=== PATIENT | female | born 1940 | race Caucasian/White ===

== ENCOUNTER → 2018-01-09 | Outpatient (CLI) | payer MEDICARE ==
--- NOTE | 2018-01-09 16:42 | Diagnostic Imaging Report ---
EXAM: DXA BONE DENSITY INDICATIONS: OSTEOPOROSIS COMPARISON: None. FINDINGS: Proximal left femur total bone mineral density (BMD) (g/cm2):0.729 Femur T-score (standard deviation relative to young adult mean BMD): -1.7 Femur Z-score (standard deviation relative to age-matched control group):0.2 Proximal left femur neck bone mineral density (BMD) (g/cm2):0.646 Femur T-score (standard deviation relative to young adult mean BMD): -1.8 Femur Z-score (standard deviation relative to age-matched control group):0.4 Lumbar bone mineral density (BMD) (g/cm2):0.902 Lumbar T-score (standard deviation relative to young adult mean BMD): -1.3 Lumbar Z-score (standard deviation relative to age-matched control group):1.2 Change since prior exam (%): Femur:Not applicable. Spine:Not applicable. Change since oldest prior exam (%): Femur:Not applicable. Spine:Not applicable. CONCLUSION: 1. Bone mineral density in the left femur is classified as osteopenia. Fracture risk is increased. 2. Bone mineral density in the spine is classified as osteopenia. Fracture risk is increased. World Health Organization Classification: *The Z-score is provided for informational purposes. The T-score is preferable for clinical decisions. When comparing exams, a change of >4% is considered statistically significant. SUGGESTED RECOMMENDATIONS: Normal \T\ Osteopenia:Consideration should be given to use of calcium supplementation, daily multiple vitamins and adequate exercise, as preventive measures against osteoporosis, if clinically indicated. Osteoporosis \T\ Severe Osteoporosis:In addition to the above, consideration should be given to medical therapy against osteoporosis, if clinically indicated. Brandon Sanchez M.D. Dictated by: Brandon Sanchez M.D. on 01/09/2018 at 16:43 Electronically approved by: Brandon Sanchez M.D. on 01/09/2018 at 16:43
== END ==
LOC: RAD 14:29
PROVIDERS: ATTEND Surgery
DX: Z12.31 Encounter for screening mammogram for malignant neoplasm of breast (principal); M81.0 Age-related osteoporosis without current pathological fracture
CPT/HCPCS: 77080

== ENCOUNTER → 2019-12-09 | Outpatient (CLI) | payer MEDICARE ==
--- NOTE | 2019-12-09 12:30 | Diagnostic Imaging Report ---
PROCEDURE: Ultrasound-guided biopsy Procedural Personnel Attending physician(s): Nadira Verma MD Fellow physician(s): None Resident physician(s): None Advanced practice provider(s): None Pre-procedure diagnosis: Left axillary mass Post-procedure diagnosis: Same Indication: Histopathologic diagnosis Previous biopsy of same target (QCDR): No Additional clinical history: None Complications: No immediate complications. IMPRESSION: Ultrasound-guided biopsy of left axillary driss mass. Plan: Specimen(s) sent for evaluation. PROCEDURE SUMMARY: - Percutaneous US-guided left axillary driss mass core and FNA biopsy - Additional procedure(s): None PROCEDURE DETAILS: Pre-procedure Reference imaging for biopsy target: None Consent: Informed consent for the procedure including risks, benefits and alternatives was obtained and time-out was performed prior to the procedure. Preparation: The site was prepared and draped using maximal sterile barrier technique including cutaneous antisepsis. Anesthesia/sedation Level of anesthesia/sedation: No sedation Anesthesia/sedation administered by: Independent trained observer under attending supervision with continuous monitoring of the patient?s level of consciousness and physiologic status Total intra-service sedation time (minutes): N/A Imaging prior to biopsy The patient was positioned supine. Initial ultrasound was performed. Biopsy target: - Maximal diameter (cm): 3 - Location: Left axilla Other findings: None Biopsy Local anesthesia was administered. Under US guidance, the biopsy needle was advanced to the target and biopsy was performed. Coaxial needle: 17 gauge Core needle biopsy device: [employer] Core needle size: 18 gauge Number of core specimens: 2 Fine needle aspiration device: Chiba Fine needle size: 22 gauge Number of FNA specimens: 2 On-site biopsy touch preparation: Yes Additional sampling recommendations: None Preliminary assessment of sample adequacy: Adequate Needle removal The biopsy needle was removed and a sterile dressing was applied. Tract embolization: None Imaging following biopsy Immediate post-biopsy ultrasound was performed. Post-biopsy imaging findings: No hematoma Additional Details Additional description of procedure: None Equipment details: None Specimens removed: Biopsy samples as detailed above Estimated blood loss (mL): Less than 10 Standardized report: [id number] Attestation Signer name: Nadira Verma MD I attest that I was present for the entire procedure. I reviewed the stored images and agree with the report as written. Signed by: Nadira Verma MD on 12/09/2019 12:27 PM
== END ==
LOC: US 10:22
PROVIDERS: ATTEND Internal Medicine Medical Oncology
DX: R59.0 Localized enlarged lymph nodes (principal); I87.2 Venous insufficiency (chronic) (peripheral); R59.1 Generalized enlarged lymph nodes; Z86.718 Personal history of other venous thrombosis and embolism
CPT/HCPCS: 10005; 38505; 88172; 88173; 88304; 88305; 88342

== ENCOUNTER → 2020-01-12 | Outpatient (CLI) | payer MEDICARE ==
--- NOTE | 2020-01-14 20:02 | Diagnostic Imaging Report ---
#[id number] - [id number] #BILATERAL DIGITAL DIAGNOSTIC MAMMOGRAM WITH CAD: 01/12/2020 Comparison is made to exam dated: 04/14/2019 mammogram - [facility]. The tissue of both breasts is predominantly fatty. Current study was also evaluated with a Computer Aided Detection (CAD) system. There is a 3.7 cm oval high density mass with a circumscribed margin in the left breast at 1 o'clock posterior depth. No other significant masses, calcifications, or other findings are seen in either breast. IMPRESSION: INCOMPLETE: NEEDS ADDITIONAL IMAGING EVALUATION The 3.7 cm oval high density mass in the left breast is indeterminate. An ultrasound is recommended. RENAE corbin/jigar:01/14/2020 15:26:55 Model Technician: Lalitha POSADAS(R)(M), [facility] Mammogram BI-RADS: 0 Indeterminate
--- NOTE | 2020-01-14 20:02 | Diagnostic Imaging Report ---
#[id number] - USBRELIMLT ULTRASOUND OF THE LEFT BREAST : 01/12/2020 Comparison is made to exams dated: 01/12/2020 mammogram - [facility] and 04/14/2019 mammogram - [facility] [place]. Color flow and real-time ultrasound were performed on the left breast. Gomez scale images of the real-time examination were reviewed. There is a are two wider than tall oval masses with a circumscribed margins in the left axillary tail measuring up to 3.5cm and 1.9cm. IMPRESSION: SUSPICIOUS OF MALIGNANCY - FOLLOW-UP RECOMMENDED The masses in the left axillary tail are suspicious. A biopsy is recommended. A phone call was made to the physician's office. The patient has been or will be contacted. RENAE DILLON M.D. kw/:01/14/2020 15:29:32 Stationary Engineer: Prudence Dominguez RDCO, [facility] letter sent: Biopsy Required Ultrasound BI-RADS: 4 Suspicious abnormality
== END ==
LOC: MAMMO 01-11 10:36
PROVIDERS: ATTEND Surgery
DX: N63.32 Unspecified lump in axillary tail of the left breast (principal); R59.0 Localized enlarged lymph nodes
CPT/HCPCS: 77066

== ENCOUNTER → 2020-01-24 | Outpatient (CLI) | payer MEDICARE ==
--- NOTE | 2020-01-26 08:32 | Diagnostic Imaging Report ---
#[id number] - MGDXLT #UNILATERAL LEFT DIGITAL DIAGNOSTIC MAMMOGRAM POST-NEEDLE BIOPSY: 01/24/2020 Comparison is made to exams dated: 01/24/2020 ultrasound biopsy and 01/12/2020 mammogram - [facility]. The tissue of the left breast is predominantly fatty. Mammographic images confirm biopsy clip in the left breast at 1 o'clock posterior depth associated with the biopsied axillary tail mass. IMPRESSION: POST PROCEDURE MAMMOGRAM FOR MARKER PLACEMENT Successful marker clip placement at axillary tail mass following ultrasound guided biopsy. Follow-up with ACR/ACS guidelines. RENAE DILLON M.D. kw/:01/24/2020 16:28:17 Pewter Caster: Lalitha POSADAS(R)(M), [facility] Mammogram BI-RADS: Post-procedure mammogram for marker placement
--- NOTE | 2020-01-26 08:32 | Diagnostic Imaging Report ---
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 PATIENT CONSENT: According to [facility] requirements, a time out was performed, correct site was localized and the patient was consented. PROCEDURE DESCRIPTION: Written informed consent for biopsy and marker placement was obtained after full discussion with patient of procedure, risks, benefits and alternatives. A multimedia developer out was taken to confirm patient and procedure. Correlation is made to exams dated: 01/12/2020 mammogram, 01/12/2020 ultrasound - [facility] and 04/14/2019 mammogram - [facility]. An ultrasound guided biopsy using real-time ultrasound was performed for the 2 cm abnormality located in the left axillary tail. The skin was prepped in the usual manner. A biopsy needle was placed adjacent to the abnormality under ultrasound guidance. Once the needle was documented to be in the correct location, 3 specimens were obtained using a 14 gauge automated biopsy device. A marker clip was placed at the biopsy site. The specimen was sent to the laboratory for pathological analysis. IMPRESSION: ULTRASOUND GUIDED BIOPSY Ultrasound guided biopsy of the 2 cm abnormality in the left axillary tail was successful. Follow-up with ACR/ACS guidelines. RENAE DILLON M.D. kw/:01/24/2020 16:26:52 Certified Ophthalmic Surgical Assistant: SUE SIMONS [facility], [facility] [id number]
== END ==
LOC: US 12:03
PROVIDERS: ATTEND Surgery
DX: N63.32 Unspecified lump in axillary tail of the left breast (principal); C50.612 Malignant neoplasm of axillary tail of left female breast; N64.1 Fat necrosis of breast
CPT/HCPCS: 19083; 77065; 88305; A4648

== ENCOUNTER 2020-05-01 20:57 | Emergency (ER) | payer MEDICARE, OTHER ==
[~2020-05-01] VITALS: Ht 165.1 cm; Wt 49.9 kg
[2020-05-01] MEDS ORDERED: ACETAMINOPHEN 325 MG TAB PO ONE (21:30)
[2020-05-01 21:43] LABS: EOSINOPHILS % 1.5 % (0.0-6.0); HEMATOCRIT 32.8 % (34.2-44.1); HEMOGLOBIN 10.8 g/dL (12.0-16.0); LYMPHOCYTES # (AUTO) 0.1 (1.0-3.2); LYMPHOCYTES % 20.9 % (18.0-39.1); MEAN CORPUSCULAR HEMOGLOBIN 33.4 pg (28-32); MEAN CORPUSCULAR HGB CONC 32.9 g/dL (31-35); MEAN CORPUSCULAR VOLUME 101.5 fL (81-99); MONOCYTES # (AUTO) 0.3 (0.2-0.8); MONOCYTES % 49.3 % (4.4-11.3); NEUTROPHILS # (AUTO) 0.2 (2.1-6.9); NEUTROPHILS % 25.3 % (38.7-80.0); PLATELET COUNT 99 x10e3/uL (140-360); RED BLOOD COUNT 3.23 x10e6/uL (3.6-5.1); RED CELL DISTRIBUTION WIDTH 12.7 % (11.7-14.4)
[2020-05-01] MEDS: CEFEPIME 1GM/NS 0.9% 50 ML 50 ML IV SCH ×2 (21:52→22:54)
[2020-05-01] MEDS ORDERED: AZITHROMYCIN 500MG/NS 250 ML 250 ML IV ONE (22:00)
[2020-05-01 22:02] LABS: ALBUMIN 3.6 g/dL (3.5-5.0); ALBUMIN/GLOBULIN RATIO 1.2 (0.8-2.0); ANION GAP 15.6 mmol/L (8-16); CALCIUM 9.3 mg/dL (8.4-10.2); CREATININE, SERUM 1.06 mg/dL (0.57-1.11); POTASSIUM 4.6 mmol/L (3.5-5.1)
--- NOTE | 2020-05-01 22:06 | Emergency Department Note ---
History of Present Illnes History of Present Illness Chief Complaint: General Medicine Complaints History of Present Illness This is a 79 year old female arrived to the ED with complaints generalized weakness and malaise for several days. Actively undergoing chemotherapy.. Chief Complaint Comment 79 Y/O FEMALE PT AAOX3 PRESENTS TO THE ER C/O GENERALIZED WEAKNESS SINCE YESTERDAY; PT IS CURRENTLY RECEIVING CHEMOTHERAPY FOR STAGE 4 BREAST CA; PT FEBRILE ON ARRIVAL, TEMP 101.9; PT DENIES HAVING RECENT FEVER; PT DENIES CP OR SOB; RESP EVEN/UNLABORED; PT PALE IN COLOR; PT ATTACHED TO CARDIAC/BS MONITOR; ER MD AT BEDSIDE FOR INITIAL EVAL. Historian: Patient, [employer] Banker/EMS Arrival Mode: [place] Spiritual Advisor Required: No Onset (how long ago): day(s) Radiation: Reports non-radiation Severity: mild Onset quality: gradual Progression: worsening Chronicity: new Past Medical/Family History Physician Review I have reviewed the patient's past medical and family history. Any updates have been documented here. Past Medical History Recent Fever: Yes Clinical Suspicion of Infectio: Yes New/Unexplained Change in Ment: No Past Medical History: A-Fib, Cancer Other Medical History: STAGE 4 BREAST CA THYROID CA MENINGITIS ENCEPHALITIS PHLEBITIS ARTHRITIS HEART ARRYTHMIA Past Surgical History: Hysterectomy, Pacer/AICD Other Surgery: HEART CATH X2 BREAST BIOPSIES Social History Physically hurt or threatened: No Review of Systems Review of Systems Constitutional: Reports as per HPI, Reports fever, Reports malaise, Reports weakness EENTM: Reports no symptoms Cardiovascular: Reports no symptoms Respiratory: Reports no symptoms Gastrointestinal: Reports no symptoms Genitourinary: Reports no symptoms Musculoskeletal: Reports no symptoms Integumentary: Reports no symptoms Neurological: Reports no symptoms Psychological: Reports no symptoms Endocrine: Reports no symptoms Hematological/Lymphatic: Reports no symptoms Physical Exam Related Data Allergies: Coded Allergies: codeine (Verified Allergy, Intermediate, 08/15/09) acetazolamide (Verified Adverse Reaction, Mild, 08/15/09) methazolamide (Verified Adverse Reaction, Mild, 08/15/09) Triage Vital Signs Vital Signs Date Time Temp Pulse Resp B/P (MAP) Pulse Ox O2 Delivery O2 Flow Rate FiO2 05/01/20 20:59 101.9 60 16 126/44 96 Room Air Vital signs reviewed: Yes Physical Exam CONSTITUTIONAL Constitutional: Present cachectic, Present ill appearing HENT HENT: Present normocephalic, Present atraumatic, Present oropharynx clear/moist, Present nose normal HENT L/R: Present left ext ear normal, Present right ext ear normal EYES Eyes: Reports PERRL, Reports conjunctivae normal NECK Neck: Present ROM normal PULMONARY Pulmonary: Present effort normal, Present breath sounds normal CARDIOVASCULAR Cardiovascular: Present regular rhythm, Present heart sounds normal, Present capillary refill normal, Present normal rate GASTROINTESTINAL Abdominal: Present soft, Present nontender, Present bowel sounds normal GENITOURINARY Genitourinary: Present exam deferred SKIN Skin: Present warm, Present dry MUSCULOSKELETAL Musculoskeletal: Present ROM normal NEUROLOGICAL Neurological: Present alert, Present oriented x 3, Present no gross motor or sensory deficits PSYCHOLOGICAL Psychological: Present mood/affect normal, Present judgement normal Results Laboratory Result Diagram: 05/01/20 2134 Laboratory Laboratory Tests Test 05/01/20 21:34 White Blood Count 0.67 x10e3/uL (4.8-10.8) Red Blood Count 3.23 x10e6/uL (3.6-5.1) Hemoglobin 10.8 g/dL (12.0-16.0) Hematocrit 32.8 % (34.2-44.1) Mean Corpuscular Volume 101.5 fL (81-99) Mean Corpuscular Hemoglobin 33.4 pg (28-32) Mean Corpuscular Hemoglobin Concent 32.9 g/dL (31-35) Red Cell Distribution Width 12.7 % (11.7-14.4) Platelet Count 99 x10e3/uL (140-360) Neutrophils (%) (Auto) 25.3 % (38.7-80.0) Lymphocytes (%) (Auto) 20.9 % (18.0-39.1) Monocytes (%) (Auto) 49.3 % (4.4-11.3) Eosinophils (%) (Auto) 1.5 % (0.0-6.0) Basophils (%) (Auto) 3.0 % (0.0-1.0) Neutrophils # (Auto) 0.2 (2.1-6.9) Lymphocytes # (Auto) 0.1 (1.0-3.2) Monocytes # (Auto) 0.3 (0.2-0.8) Eosinophils # (Auto) 0.0 (0.0-0.4) Basophils # (Auto) 0.0 (0.0-0.1) Absolute Immature Granulocyte (auto 0 x10e3/uL (0-0.1) Lactic Acid Level 2.3 mmol/L (0.5-2.0) Lab results reviewed: Yes Imaging Imaging results reviewed: Yes Assessment & Plan Medical Decision Making MDM 79-year-old female rotated generalized malaise, weakness. Patient noted to be febrile, marked neutropenia noted. Concerns are neutropenic fever and severe sepsis. Patient transferred to [facility] for continuity of high level of care. Assessment & Plan Final Impression: (1) Neutropenic fever (2) Severe sepsis Depart Disposition: [facility]ANS TO OTHER [facility] Last Vital Signs Date Time Temp Pulse Resp B/P (MAP) Pulse Ox O2 Delivery O2 Flow Rate FiO2 05/01/20 20:59 101.9 60 16 126/44 96 Room Air Medications in the ED Cefepime HCl 50 ml @ 100 mls/hr Q24H IV ; Start 05/01/20 at 21:30; Stop 05/08/20 at 21:29 Azithromycin 250 ml @ 250 mls/hr NOW ONCE IV ; Start 05/01/20 at 22:00; Stop 05/01/20 at 22:59 Acetaminophen 650 mg ONCE ONCE PO Last administered on 05/01/20at 21:53; Admin Dose 650 MG; Start 05/01/20 at 21:30; Stop 05/01/20 at 21:31 NAGI LAWRENCE DO May 01, 2020 22:07
[2020-05-01 22:07] LABS: BILIRUBIN,URINE NEGATIVE (NEGATIVE); CLARITY,URINE CLEAR (CLEAR); COLOR,URINE YELLOW (YELLOW); KETONES,URINE NEGATIVE (NEGATIVE); LEUKOCYTE ESTERASE ,URINE NEGATIVE (NEGATIVE); NITRITE,URINE NEGATIVE (NEGATIVE); PROTEIN,URINE DIPSTICK NEGATIVE (NEGATIVE); URINE UROBILINOGEN 0.2 mg/dL (0.2 - 1)
[2020-05-01 22:09] LABS: AMORPHOUS SEDIMENT,URINE FEW (FEW); BACTERIA,URINE MODERATE /HPF; EPITHELIAL CELLS,URINE RARE /LPF; MUCUS,URINE FEW (RARE); RBC,URINE 0-5 /HPF (0-5)
[2020-05-01 22:15] LABS: CREATINE KINASE MB 2.9 ng/mL (0-5.0)
[2020-05-01 22:19] LABS: EOSINOPHILS % (MANUAL) 2 % (0-7); LYMPHOCYTES % (MANUAL) 16 % (19-48); METAMYELOCYTES % (MANUAL) 2 % (0-0); MONOCYTES % (MANUAL) 26 % (3.4-9.0); NEUTROPHILS % (MANUAL) 34 % (40-74); PLATELET ESTIMATE SLIGHTLY DECREASED; PLATELET MORPHOLOGY COMMENT NORMAL; RBC MORPHOLOGY COMMENT NORMAL
--- NOTE | 2020-05-01 22:39 | Diagnostic Imaging Report ---
Examination: CT BRAIN WO CONTRAST History:Fever. Weakness. Comparison studies:None Technique: Axial images were obtained from the skull base to the vertex. Coronal and sagittal images reconstructed from the axial data. Dose modulation, iterative reconstruction, and/or weight based adjustment of the mA/kV was utilized to reduce the radiation dose to as low as reasonably achievable. Intravenous contrast: None Findings: Scalp: No abnormalities. Bones: No fractures, blastic or lytic lesions. Brain sulci: Generalized volume loss for age. Ventricles: A occipital shunt catheter traverses the third ventricle and distal tip in the frontal horn of the right lateral ventricle. Ventriculomegaly. No hydrocephalus. Extra-axial space: No abnormalities. Parenchyma: There are patchy areas of hypoattenuation in the periventricular and subcortical white matter, nonspecific No masses, hemorrhage, or acute or chronic cortical based vascular insults.. Sellar/suprasellar region: No abnormalities. Craniocervical junction: Patent foramen magnum. No Chiari one malformation. Incidental findings: None. Impression: No acute intracranial abnormalities. Left occipital ventricular shunt catheter with distal tip in the right lateral ventricle. Ventriculomegaly. Chronic microvascular ischemic change and generalized volume loss. Signed by: Dr. Shabana Meraz M.D. on 05/01/2020 10:36 PM
--- NOTE | 2020-05-01 22:43 | Diagnostic Imaging Report ---
EXAMINATION: CHEST SINGLE (PORTABLE) INDICATION: ^Y ^FEVER COMPARISON: None FINDINGS: AP view TUBES and LINES: Left chest port in place with tip projecting over mid SVC. Dual-lead left chest wall cardiac device in place with tips projecting over right atrium and right ventricle. Partially seen left-sided ventriculoperitoneal shunt. LUNGS: Lungs are well inflated. Left lower lung field hazy airspace opacities. PLEURA: No pleural effusion or pneumothorax. HEART AND MEDIASTINUM: The cardiomediastinal silhouette is prominent. Mild central vascular congestion. BONES AND SOFT TISSUES: No acute osseous lesion. Soft tissues are unremarkable. UPPER ABDOMEN: No free air under the diaphragm. Surgical clips projecting over right superior mediastinum and right upper chest wall. IMPRESSION: Left lower lung field hazy opacities, could represent subsegmental atelectasis or developing pneumonia in the appropriate clinical context. Signed by: Dr. Lee Lakhani MD on 05/01/2020 10:40 PM
--- NOTE | 2020-05-01 23:17 | NUR ---
REPORT CALLED AT THIS TIME TO OREN ELIZABETH, AT [facility] ROOM 1043.
--- OUTSIDE RECORDS SUMMARY | 2020-05-01 23:18 | XMS REPORT | Clinical Summary ---
Author Author [facility] Organization [facility] Address Unknown Phone Unavailable Care Team Providers Care Front End Ui Developer Name Role Phone Keenan Hernández MD PCP Allergies Comments Active Allergy Reactions Severity Noted Date Acetazolamide 02/25/2017 Codeine 02/25/2017 Methazolamide 02/25/2017 Medications End Date Status Medication Sig Dispensed Refills Start Date Active warfarin (COUMADIN) 1 MG 0 tablet 7 Active promethazine (PHENERGAN) 0 25 MG tablet 7 Active HYDROcodone-acetaminophen 0 (NORCO) 10-325 mg per 7 tablet Active flecainide (TAMBOCOR) 50 0 MG tablet 7 Active diazePAM (VALIUM) 5 MG 0 tablet 7 Active ALPRAZolam (XANAX) 2 MG 0 tablet 7 Active thyroid, pork, 65 mg Take by 0 tablet mouth. Active metoprolol succinate XL TAKE ONE (1) 0 (TOPROL-XL) 25 mg 24 hr TABLET(S) BY 8 tablet MOUTH ONCE A DAY. Active tiZANidine (ZANAFLEX) 2 TAKE ONE (1) 5 MG tablet TABLET BY 8 MOUTH AT BEDTIME. Active amIODarone (PACERONE) 200 TAKE ONE (1) 3 09/22 7/201 MG tablet TABLET(S) BY 9 MOUTH ONCE A DAY. Active spironolactone TAKE ONE (1) 3 (ALDACTONE) 25 MG tablet TABLET(S) BY 8 MOUTH ONCE A DAY. Active pantoprazole (PROTONIX) TAKE ONE (1) 90 tablet 3 0 40 MG EC tablet TABLET(S) BY 0 MOUTH DAILY. 11/25/2019 Discontinued pantoprazole (PROTONIX) Take 1 tablet 90 tablet 4 40 MG EC tablet (40 mg total) 9 by mouth daily. 12/07/2019 Discontinued (Reorder) pantoprazole (PROTONIX) TAKE ONE (1) 90 tablet 3 0 40 MG EC tablet TABLET(S) BY 0 MOUTH DAILY. Active Problems Problem Noted Date Irritable bowel syndrome with diarrhea 02/25/2017 Hiatal hernia GERD (gastroesophageal reflux disease) Gastritis Encounters Care Team Description Date Type Specialty Magen To MD 12/07/2019 Refill Gastroenterology Magen To MD 11/25/2019 Refill Gastroenterology after 05/01/2019 Family History Relation Name Status Comments Father Mother Social History Date Tobacco Use Types Packs/Day Years Used Former Smoker Smokeless Tobacco: Former User Drinks/Week oz/Week Comments Alcohol Use No Sex Assigned at Date Recorded Not on file Industry Job Start Date Occupation Not on file Not on file Not on file Travel End Travel History Travel Start No recent travel history available. Last Filed Vital Signs Not on file Plan of Treatment Health Maintenance Due Date Last Done Comments SHINGLES VACCINES (#1) 1990 65+ PNEUMOCOCCAL VACCINE 2005 (1 of 2 - PCV13) INFLUENZA VACCINE 04/22/2020 Results Not on fileafter 05/01/2019 Insurance Type Payer Benefit Subscriber ID Effective Phone Address Plan / Dates Group Medicare MEDICARE MEDICARE xxxxxxxxxxx 2005-P [place], PART A AND resent [place] B Commercial AARP AAR xxxxxxxxxxx 2005-P SUPPLEMENT resent Advance Directives For more information, please contact: [phone] Patient Rigger Explanation Type Date Recorded Advance Directives, Living Will and Medical Power of Wardrobe Supervisor
--- OUTSIDE RECORDS SUMMARY | 2020-05-01 23:18 | XMS REPORT | Continuity of Care Document ---
Author Author [facility] t Organization [facility] Address [address] [place] [address] Phone Unavailable Care Team Providers Care Bowling Alley Manager Name Role Phone Betty SANCHEZ, Paola Hussein PCP Dony LAWRENCE Attphys Unavailable Lena SANCHEZ, Tsering Ley Attphys SEAN GUAMAN Attphys Unavailable Pepper SANCHEZ, Sean Euceda Attphys Mayela SANCHEZ, Patric Attphys Soumya SANCHEZ, Evy Michel Attphys BEREKET CANAS Attphys Unavailable Ervin ESTRADA Attphys Unavailable Yousuf SANCHEZ, Lisa Us Attphys [phone] ANGELA MASCORRO M.D. Attphys Unavailable DAVIS VELA NP Attphys Unavailable JASS JOY Attphys Unavailable Gwen ESPINOZA Attphys Unavailable JOSE J BOSTON Attphys Unavailable EVY WINKLER Admphys Unavailable JASS JOY Admphys Unavailable LUDY JOSE J Admphys Unavailable Payers Payer Name Policy Type Policy Number Effective Date Expiration Date Dony smith MEDICAREMEDICARE A BxxxxxxxxxxxMedicare xxxxxxxxxxx [facility] MCR SUPPLEMENT/INDIVIDUALAARP/KINDRED HEALTHCARExxxxxxxxxxxMediga p xxxxxxxxxxx [facility] robert [facility] REVIEWCDC [place] [address] [id number] [facility] MEDICAREMEDICARE PART A AND Bxxxxxxxxxxx2004-[place]HOUS [place], [place]xx 2005 00:00:00 Xiang Bettencourt AARPAARP SUPPLEMENTxxxxxxxxxxx9-PresentCommercial xxxxxxxxxxx 2005 00:00:00 Xiang Bettencourt Problems Condition Name Condition Details Condition Category Status Onset Date Resolution Date Last Treatment Date Treating Clinician Comments Source Sepsis Sepsis Disease Active 2020-03-01 00:00:00 [facility] CHF (congestive heart failure), NYHA class III CHF (co ngestive heart failure), NYHA class III Disease Active 2018-08-05 00:00:00 [facility] PAF (paroxysmal atrial fibrillation) PAF (paroxysmal atrial fibrillation) Disease Active 2017-10-20 00:00:00 [facility] Tachy-kia syndrome Tachy-kia syndrome Disease Active 00:00:00 [facility] SSS (sick sinus syndrome) SSS (sick sinus syndrome) Disease Ac tive 2017-10-20 00:00:00 [facility] Irritable bowel syndrome with diarrhea Irritable bowel syndr ome with diarrhea Disease Active 2017-02-25 00:00:00 Xiang Bettencourt Fever Fever Disease Active 2013-04-19 00:00:00 [facility] Pneumonia Pneumonia Disease Active 2013-02-28 00:00:00 [facility] Hydrocephalus, communicating Hydrocephalus, communicating Disease Active 2013-02-24 00:00:00 [facility] Bilateral primary osteoarthritis of knee Bilateral oscar tristen osteoarthritis of knee Problem Active [facility] Hip pain, bilateral Hip pain, bilateral Problem Active [facility] Greater trochanteric bursitis of left hip Greater troc hanteric bursitis of left hip Problem Active [facility] Hiatal hernia Hiatal hernia Disease Active Xiang Bettencourt GERD (gastroesophageal reflux disease) GERD (gastroesophagea l reflux disease) Disease [facility] Gastritis Gastritis Disease Active Anitha Bettencourt Allergies, Adverse Reactions, Alerts Allergy Name Allergy Type Status Severity Reaction(s) Onset Date Inacti ve Date Treating Clinician Comments Source acetazolamide DA Active 2019-12-15 00:00:00 [facility] methazolamide DA Active 2019-12-15 00:00:00 [facility] trazodone DA Active 2019-12-15 00:00:00 [facility] bupivacaine DA Active 2019-12-15 00:00:00 [facility] tizanidine DA Active 2019-12-15 00:00:00 [facility] codeine DA Active SV 2019-04-14 00:00:00 [facility] acetazolamide DA Active U 2019-04-14 00:00:00 [facility] methazolamide DA Active U 2019-04-14 00:00:00 [facility] bupivacaine DA Active U 2019-04-14 00:00:00 [facility] lidocaine DA Active U 2019-03-22 00:00:00 [facility] acetazolamide DA Active U 2019-03-22 00:00:00 [facility] methazolamide DA Active U 2019-03-22 00:00:00 [facility] bupivacaine DA Active U 2019-03-22 00:00:00 [facility] Acetazolamide Propensity to adverse reactions to drug Active 2017-02-25 00:00:00 Xiang Mitchell t Codeine Propensity to adverse reactions to drug Active 2017-02-25 00:00:00 Xiang Bettencourt Methazolamide Propensity to adverse reactions to drug Active 2017-02-25 00:00:00 Xiang Johnsonis t Acetazolamide Propensity to adverse reactions Active 04-03-05 00:00:00 Makes her [facility] Methazol[facility] Propensity to adverse reactions Active 04-03-05 00:00:[address] [facility] Codeine Drug Allergy Active Itching, Dermatitis 2013-02-22 00:00:0 0 [facility] Tape Adherent Drug Allergy Active Dermatitis 2013-02-22 00:00:0 0 States skin comes off with tape when removed. [facility] codeine DA Active SV 2009-12-09 00:00:00 [facility] Family History Family Member Diagnosis Comments Start Date Stop Date Source Natural father Cancer [facility] Natural mother Cancer [facility] Social History Social Habit Start Date Stop Date Quantity Comments Source Sex Assigned At [facility] Alcohol intake 2018-10-13 00:00:00 2018-10-13 00:00:00 Current non-drinker of alcohol (finding) Xiang Bettencourt Alcohol Comment 2013-04-19 00:00:00 2013-04-19 00:00:00 over a week s guzman [facility] Smoking Status Start Date Stop Date Source Never smoker [facility] Former smoker 2018-10-13 00:00:00 2018-10-13 00:00:00 Xiang Bettencourt Medications Ordered Medication Name Filled Medication Name Start Date Stop Da te Current Medication? Ordering Clinician Indication Dosage Frequency Signature (SIG) Comments Components Source ondansetron (ZOFRAN-ODT) 4 MG disintegrating tablet 2020-03-04 00:00:00 2020-03-11 23:59:00 No 8mg Take 2 tablets (8 mg total) by mouth every 8 (eight) hours as needed for up to 7 days. [facility] thyroid, pork, 65 mg Tab 2020-03-03 08:54:40 Yes 32.5mg QD Take 32.5 mg by mouth daily Takes 130 mg in am , and 65 mg at noon. [facility] metoprolol (TOPROL-XL) 25 MG 24 hr tablet 2020-03-03 08:52:42 Yes 25mg QD Take 25 mg by mouth daily . [facility] eluxadoline (VIBERZI) 100 mg Tab 2020-03-03 08:52:25 2020-02 00:00:00 No Q.5D Take by mouth 2 (two) times daily. [facility] amiodarone (PACERONE) 200 MG tablet 2020-03-02 13:56:08 Yes 200mg QD Take 200 mg by mouth daily. [facility] spironolactone (ALDACTONE) 25 MG tablet 2020-03-02 13:56:08 Yes 25mg QD Take 25 mg by mouth daily. [facility] apixaban (ELIQUIS) 5 mg Tab tablet 2020-03-01 23:44:01 Yes 5mg Q.5D Take 5 mg by mouth 2 (two) times daily. [facility] warfarin (COUMADIN) 2 MG tablet 2020-03-01 23:42:06 00:00:00 No 3mg QD Take 3 mg by mouth daily sliding scale per INR. [facility] losartan (COZAAR) 25 MG tablet 2020-03-01 23:41:08 2020-03-01 00 :00:00 No 25mg QD Take 25 mg by mouth daily. Anni BARRON [facility] pantoprazole (PROTONIX) 40 MG EC tablet 2019-12-07 00:00:00 Yes TAKE ONE (1) TABLET(S) BY MOUTH DAILY. Ana Bettencourt pantoprazole (PROTONIX) 40 MG EC tablet 00:00:00 2019-12-07 11:57:06 No TAKE ONE (1) TABLET(S) BY MOUTH DAILY. Xiang Bettencourt Diclofenac Sodium 1 % Transdermal Gel Diclofenac Sodium 1 % Transdermal Gel 2019-10-05 00:00:00 Yes ANGELA MASCORRO M.D. APPLY TO LOWER EXTREMITY 4 GM OF GEL TO AFFECTED AREA 2 TIMES DAILY [facility] tiZANidine HCl - 4 MG Oral Tablet tiZANidine HCl - 4 MG Oral Tablet 2018-11-24 00:00:00 Yes ANGELA MASCORRO M.D. 1 TAKE ONE TABLET BY MOUTH EVERY NIGHT AT BEDTIME [facility] thyroid, pork, 65 mg tablet 2018-10-13 15:52:23 Yes Take by mouth. Xiang Bettencourt pantoprazole (PROTONIX) 40 MG EC tablet 00:00:00 2019-11-25 00:00:00 No 40mg QD Take 1 tablet (40 mg total) by mouth daily. Xiang Bettencourt amIODarone (PACERONE) 200 MG tablet 2018-10-08 00:00:00 Yes TAKE ONE (1) TABLET(S) BY MOUTH ONCE A DAY. Brigid [facility]ist tiZANidine (ZANAFLEX) 2 MG tablet 2018-09-19 00:00:00 Yes TAKE ONE (1) TABLET BY MOUTH AT BEDTIME. Xiang Johnsonist metoprolol succinate XL (TOPROL-XL) 25 mg 24 hr tablet 2018-08-26 00:00:00 Yes TAKE ONE (1) TABLET(S) BY MOUTH ONCE A D AY. Xiang Johnsonist spironolactone (ALDACTONE) 25 MG tablet 2018-08-08 00:00:00 Yes TAKE ONE (1) TABLET(S) BY MOUTH ONCE A DAY. Ana Laura ng [facility] spironolactone (ALDACTONE) 25 MG tablet 00:00:00 2019-08-08 23:59:00 No 25mg QD Take 1 tablet (25 mg total) by mouth daily. [facility] amiodarone (PACERONE) 200 MG tablet 2018-08-07 00:00:0 0 2019-08-07 23:59:00 No 200mg Q.5D Take 1 tablet (200 mg total) by mouth 2 (two) times daily. [facility] furosemide (LASIX) 20 MG tablet 2018-08-05 12:48:52 Yes 20mg QD Take 20 mg by mouth daily. [facility] diazePAM (VALIUM) 5 MG tablet 2017-10-20 06:16:43 Yes 5mg Take 5 mg by mouth every 6 (six) hours as needed for Anxiety. [facility] cyanocobalamin (VITAMIN B-12) 1,000 mcg/mL injection 2 16:22:53 Yes 1000ug Q14D Inject 1,000 mcg intramuscularly every 1 4 (fourteen) days . [facility] pantoprazole (PROTONIX) 40 MG tablet 2017-10-17 16:22:53 Ye s 40mg QD Take 40 mg by mouth daily. [facility] HYDROcodone-acetaminophen (NORCO 10-325) 10-325 mg per table t 2017-10-17 16:22:53 Yes 1{tbl} Take 1 tab let by mouth every 6 (six) hours as needed for Pain. [facility] HYDROcodone-acetaminophen (NORCO) 10-325 mg per tablet 2017-02-25 00:00:00 Yes Xiang melara flecainide (TAMBOCOR) 50 MG tablet 2017-02-18 00:00:00 Yes Xiang Bettencourt promethazine (PHENERGAN) 25 MG tablet 2017-02-17 00:00:00 Yes Xiang Bettencourt ALPRAZolam (XANAX) 2 MG tablet 2017-02-15 00:00:00 Yes [facility] diazePAM (VALIUM) 5 MG tablet 2017-01-29 00:00:00 [facility] MG tablet 2017-01-21 00:00:00 Yes [facility] ALPRAZolam (XANAX) 2 MG tablet 2013-02-22 11:30:32 Yes 2mg Take 2 mg by mouth every night as needed. [facility] Vital Signs Vital Name Observation Time Observation Value Comments Source Systolic blood pressure 2020-03-04 10:58:00 158 mm[Hg] [facility] Diastolic blood pressure 2020-03-04 10:58:00 71 mm[Hg] [facility] Heart rate 2020-03-04 10:58:00 60 /min [facility] Body temperature 2020-03-04 10:58:00 37.17 Nidia [facility] Respiratory rate 2020-03-04 10:58:00 20 /min [facility] Oxygen saturation in Arterial blood by Pulse oximetry 03-04 10:58:00 96 /min [facility] Body weight Measured 2020-03-01 23:15:00 58.196 kg [facility] BMI 2020-03-01 23:15:00 21.35 kg/m2 [facility] Body height 2020-03-01 11:57:00 165.1 cm [facility] Procedures Procedure Date / Time Performed Performing Clinician Sour e RHYTHM STRIP - SCAN 2020-03-07 09:10:16 Provider, Dianne blue [facility] BASIC METABOLIC PANEL (7) 2020-03-04 04:54:00 Anand Winkler [facility] PROTHROMBIN TIME/INR 2020-03-04 04:54:00 Anand Winkler [facility] MAGNESIUM 2020-03-04 04:54:00 Anand Winkler [facility] PHOSPHORUS 2020-03-04 04:54[facility] & AUTO DIFFERENTIAL 2020-03-04 04:54:00 [facility] (CELLAVISION MANUAL DIFF) 2020-03-04 04:54:00 Anand Winkler [facility] CBC W/PLT COUNT & AUTO DIFFERENTIAL 2020-03-03 09:14:00 Anand Winkler [facility] (CELLAVISION MANUAL DIFF) 2020-03-03 09:14:00 Anand Winkler [facility] BASIC METABOLIC PANEL (7) 2020-03-03 04:43:00 Anand Winkler [facility] PROTHROMBIN TIME/INR 2020-03-03 04:43:00 Anand Winkler [facility] MAGNESIUM 2020-03-03 04:43:00 Anand Winkler [facility] PHOSPHORUS 2020-03-03 04:43:00 Anand Winkler [facility] CREATINE KINASE (CK) 2020-03-02 03:28:00 JoAnand samaniego [facility] BASIC METABOLIC PANEL (7) 2020-03-02 03:28:00 Marco Antonioana laura Anand [facility] PROTHROMBIN TIME/INR 2020-03-02 03:28:00 Juliajalilana laura Anand [facility] MAGNESIUM 2020-03-02 03:28:00 Marco AntonioAnand ortiz [facility] PHOSPHORUS 2020-03-02 03:28:00 Jodanette Anand [facility] CBC W/PLT COUNT & AUTO DIFFERENTIAL 2020-03-02 03:28:00 Soumya Anand [facility] (CELLAVISION MANUAL DIFF) 2020-03-02 03:28:00 Soumya Anand [facility] B-TYPE NATRIURETIC FACTOR (BNP) 2020-03-01 15:58:00 Marco Antonio Anand [facility] PROTHROMBIN TIME/INR 2020-03-01 15:58:00 [facility] Anand [facility] URINALYSIS W/ MICROSCOPIC 2020-03-01 14:02:00 Ok Guaman Bao Anni [facility] XR CHEST PA OR AP 1 VIEW IN DEPT. 2020-03-01 13:09:00 Rainer Guaman [facility] SARS-COV2/RT-PCR ([facility]) 2020-03-01 12:28:00 Ileana Guaman [facility] BLOOD CULTURE 2020-03-01 12:25:00 Ok Guaman [facility] COMPREHENSIVE METABOLIC PANEL 2020-03-01 12:25:00 Ok Guaman [facility] LACTIC ACID, VENOUS 2020-03-01 12:25:00 GuamanOk rossi [facility] CBC W/PLT COUNT & AUTO DIFFERENTIAL 2020-03-01 12:25:00 Ok Guaman [facility] (CELLAVISION MANUAL DIFF) 2020-03-01 12:25:00 Ok Guaman [facility] XRAY Hip bilateral w pelvis and both lat hips [id number] 2019-10-04 0 0:00:00 [facility] Plan of Care Planned Activity Planned Date Details Comments Source Future Scheduled Test 2020-04-22 00:00:00 INFLUENZA VACCINE [code = INFLUENZA VACCINE] [facility] Diagnostic Test Pending 2019-10-05 00:00:00 XRAY Hip bilater al w pelvis and both lat hips 38436 [code = 29845] [facility] Future Scheduled Test 2005 00:00:00 65+ PNEUMOCOCCAL V ACCINE (1 of 2 - PCV13) [code = 65+ PNEUMOCOCCAL VACCINE (1 of 2 - PCV13)] [facility] Future Scheduled Test 1990 00:00:00 SHINGLES VACCINES (#1) [code = SHINGLES VACCINES (#1)] [facility] Encounters Start Date/Time End Date/Time Encounter Type Admission Type Attendi [facility] Care Department Encounter ID Source 2019-10-05 11:00:00 2019-10-05 11:00:00 Appointment; LEE MASCORRO M.D. KENDRICK, JAMES, M.D. [facility] Orthopedics [facility] [id number] [facility] 2019-09-28 13:30:00 2019-09-28 13:30:00 Appointment; DAVIS VELA NP BOWDEN, TERRI, NP [facility] Orthopedics [facility] [id number] [facility] 2019-06-29 10:45:00 2019-06-29 10:45:00 Appointment; LEE MASCORRO M.D. KENDRICK, JAMES, M.D. [facility] [id number] [facility] 2019-03-09 10:45:00 2019-03-09 10:45:00 Appointment; LEE MASCORRO M.D. KENDRICK, JAMES, M.D. [facility] OrthopedicFormerly [facility] [id number] [facility] 2018-11-24 13:30:00 2018-11-24 13:30:00 Appointment; LEE MASCORRO M.D. KENDRICK, JAMES, M.D. [facility] [id number] [facility] 2018-10-22 11:00:00 2018-10-22 11:00:00 Appointment; LEE MASCORRO M.D. KENDRICK, JAMES, M.D. [facility] [id number] [facility] 2018-10-08 15:00:00 2018-10-08 15:00:00 Appointment; LEE MASCORRO M.D. KENDRICK, JAMES, M.D. [facility] [id number] [facility] 2018-06-18 11:00:00 2018-06-18 11:00:00 Appointment; LEE MASCORRO M.D. KENDRICK, JAMES, M.D. [facility] [id number] [facility] 2018-06-11 11:00:00 2018-06-11 11:00:00 Appointment; LEE MASCORRO M.D. KENDRICK, JAMES, M.D. [facility] [id number] [facility] 2018-06-04 13:15:00 2018-06-04 13:15:00 Appointment; LEE MASCORRO M.D. KENDRICK, JAMES, M.D. [facility] [id number] [facility] 2018-04-17 11:00:00 2018-04-17 11:00:00 Appointment; LEE MASCORRO M.D. KENDRICK, JAMES, M.D. [facility] Orthopedics [facility] [id number] [facility] Results Test Description Test Time Test Comments Results Result Comments Source CHEST SINGLE (PORTABLE) 2020-05-01 22:36:00 [place] [address] Patient Name: SAM BAILEY MR #: [id number] : 1940 Age/Sex: 79/F Req #: [id number] Adm Physician: Ordered by: NAGI LAWRENCE DO Report #: [id number] Location: ER Room/Bed: Procedure: [id number] DX/CHEST SINGLE (PORTABLE) Exam Date: Exam Time: REPORT STATUS: Signed EXAMINATION: CHEST SINGLE (PORTABLE) INDICATION: Y FEVER COMPARISON: None FINDINGS: AP view TUBES and LINES: Left chest port in place with tip projecting over mid SVC. Dual-lead left chest wall cardiac device in place with tips projecting over right atrium and right ventricle. Partially seen left-sided ventriculoperitoneal shunt. LUNGS: Lungs are well inflated. Left lower lung field hazy airspace opacities. PLEURA: No pleural effusion or pneumothorax. HEART AND MEDIASTINUM: The cardiomediastinal silhouette is prominent. Mild central vascular congestion. BONES AND SOFT TISSUES: No acute osseous lesion. Soft tissues are unremarkable. UPPER ABDOMEN: No free air under the diaphragm. Surgical clips projecting over right superior mediastinum and right upper chest wall. IMPRESSION: Left lower lung field hazy opacities, could represent subsegmental atelectasis or developing pneumonia in the appropriate clinical context. Signed by: Dr. David Lakhani MD on 05/01/2020 10:40 PM Dictated By: DAVID LAKHANI MD 39 Transcribed By: PORTIA on 05/01/202239 COPY TO: NAGI LAWRENCE DO CT BRAIN WO 2020-05-01 22:30:00 [place] [address] Patient Name: SAM BAILEY MR #: [id number] : 1940 Age/Sex: 79/F Req #: [id number] Adm Physician: Ordered by: NAGI LAWRENCE DO Report #: [id number] Location: ER Room/Bed: Procedure: [id number] CT/CT BRAIN WO Exam Date: Exam Time: REPORT STATUS: Signed Examination: CT BRAIN WO CONTRAST History:Fever. Weakness. Comparison studies:None Technique: Axial images were obtained from the skull base to the vertex. Coronal and sagittal images reconstructed from the axial data. Dose modulation, iterative reconstruction, and/or weight based adjustment of the mA/kV was utilized to reduce the radiation dose to as low as reasonably achievable. Intravenous contrast: None Findings: Scalp: No abnormalities. Bones: No fractures, blastic or lytic lesions. Brain sulci: Generalized volume loss for age. Ventricles: A occipital shunt catheter traverses the third ventricle and distal tip in the frontal horn of the right lateral ventricle. Ventriculomegaly. No hydrocephalus. Extra- axial space: No abnormalities. Parenchyma: There are patchy areas of hypoattenuation in the periventricular and subcortical white matter, nonspecific No masses, hemorrhage, or acute or chronic cortical based vascular insults.. Sellar/suprasellar region: No abnormalities. Craniocervical junction: Patent foramen magnum. No Chiari one malformation. Incidental findings: None. Impression: No acute intracranial abnormalities. Left occipital ventricular shunt catheter with distal tip in the right lateral ventricle. Ventriculomegaly. Chronic microvascular ischemic change and generalized volume loss. Signed by: Dr. Shabana Meraz M.D. on 05/01/2020 10:36 PM Dictated By: SHABANA HURT MD 35 Transcribed By: PORTIA on 05/01/202235 COPY TO: NAGI LAWRENCE, Blood Culture - Routine (Left Venipuncture) 2020-03-06 16:00 :00 Test Item Result (test code = 6463-4) No growth in 5 days [facility] [id number] 16:00:00* Test Item Value Reference Range Interpretation Comments CULTURE (BEAKER) (test code = 1095) No growth in 5 days BLOOD [id number] 16:00:00* Test Item Value Reference Range Interpretation Comments CULTURE (BEAKER) (test code = 1095) No growth in 5 days CBC with platelet count + automated [id number] 10:08:00* Test Item Value Reference Range Interpretation Comments WBC (test code = 6690-2) 19.7 3.5- 10.5 K/L H RBC (test code = 789-8) 3.14 3.93- 5.22 M/L L MCHC (test code = 786-4) 32.2 32.2- 35.5 GM/DL L Hematocrit (test code = 4544-3) 32.3 % 34.1-44.9 L MCV (test code = 787-2) 102.9 fL 79.4-94.8 H MCH (test code = 785-6) 33.1 pg 25.6-32.2 H RDW (test code = 788-0) 14.3 % 11.7-14.4 Platelets (test code = 777-3) 156 150- 450 K/CU MM MPV (test code = 65445-2) 10.9 fL 9.4-12.3 nRBC (test code = 413) 0 0- 0 /100 WBC Lab Interpretation (test code = 65806-5) [id number] 10:08:00* Test Item Value Reference Range Interpretation Comments % Neutros (test code = 2816) 93 % % Lymphs (test code = 2817) 2 % % Monos (test code = 2818) 3 % % Metamyelo (test code = 2821) 1 % 0-0 H % Bands (test code = 2826) 1 % 0-10 # Neutros (test code = 2830) 18.32 K/ul 1.56-6.13 H # Lymphs (test code = 2831) 0.39 K/ul 1.18-3.74 L # Monos (test code = 2832) 0.59 K/uL 0.24-0.36 H # Metamyelo (test code = 2836) 0.20 K/uL 0-0 H # Bands (test code = 2840) 0.20 K/uL 0-0.8 Total Counted (test code = 1351) 100 WBC Morphology (test code = 487) Normal Giant Platelet (test code = 313) Present Large Platelet (test code = 2156) Present Polychromasia (test code = 478) 1+ few Hypochromia (test code = 963) 1+ few Anisocytosis (test code = 961) 1+ few Microcytes (test code = 965) 1+ few Poikilocytes (test code = 966) 1+ few Elliptocytes (test code = 962) 1+ few Ovalocytes (test code = 477) 1+ few Tear Drop Cells (test code = 481) 1+ few Angelo Cells (test code = 474) 1+ few Artifact (test code = 3432) Present Platelet Conc (test code = 3438) Adequate KRYSTIAN (test code = KRYSTIAN) [facility] [employer] ID - Danielle Bedolla comments: Slide comments: WBC: SEGMENTED WITH TOXIC GRANUALTIONS PRESENT Lab Interpretation (test code = 40709-3) [facility] AUTO [id number] 10:08:00* Test Item Value Reference Range Interpretation Comments WHITE BLOOD CELL COUNT (BEAKER) (test code = 775) 19.7 K/ L 3.5- 10.5 H RED BLOOD CELL COUNT (BEAKER) (test code = 761) 3.14 M/ L 3.93-5 .22 L HEMOGLOBIN (BEAKER) (test code = 410) 10.4 GM/DL 11.2-15.7 L HEMATOCRIT (BEAKER) (test code = 411) 32.3 % 34.1-44.9 L MEAN CORPUSCULAR VOLUME (BEAKER) (test code = 753) 102.9 fL 79. 4-94.8 H MEAN CORPUSCULAR HEMOGLOBIN (BEAKER) (test code = 751) 33.1 pg 25.6-32.2 H MEAN CORPUSCULAR HEMOGLOBIN CONC (BEAKER) (test code = 752) 32.2 GM/DL 32.2-35.5 RED CELL DISTRIBUTION WIDTH (BEAKER) (test code = 412) 14.3 % 11.7-14.4 PLATELET COUNT (BEAKER) (test code = 756) 156 K/CU MM 150-450 MEAN PLATELET VOLUME (BEAKER) (test code = 754) 10.9 fL 9.4-12 .3 NUCLEATED RED BLOOD CELLS (BEAKER) (test code = 413) 0 /100 WBC 0 -0 (CELLAVISION MANUAL DIFF)2020-03-04 10:08:00* Test Item Value Reference Range Interpretation Comments NEUTROPHILS - REL (CELLAVISION)(BEAKER) (test code = 2816) 93 % LYMPHOCYTES - REL (CELLAVISION)(BEAKER) (test code = 2817) 2 % MONOCYTES - REL (CELLAVISION)(BEAKER) (test code = 2818) 3 % METAMYELOCYTES - REL (CELLAVISION)(BEAKER) (test code = 2821) 1 % 0-0 H BANDS - REL (CELLAVISION)(BEAKER) (test code = 2826) 1 % 0 -10 NEUTROPHILS - ABS (CELLAVISION)(BEAKER) (test code = 2830) 18.32 K/ul 1.56-6.13 H LYMPHOCYTES - ABS (CELLAVISION)(BEAKER) (test code = 2831) 0.39 K/ul 1.18-3.74 L MONOCYTES - ABS (CELLAVISION)(BEAKER) (test code = 2832) 0.59 K/uL 0.24-0.36 H METAMYELOCYTES - ABS (CELLAVISION)(BEAKER) (test code = 2836 ) 0.20 K/uL 0.00-0.00 H BANDS - ABS (CELLAVISION)(BEAKER) (test code = 2840) 0.20 K/uL 0 .00-0.80 TOTAL COUNTED (BEAKER) (test code = 1351) 100 WBC MORPHOLOGY (BEAKER) (test code = 487) Normal GIANT PLATELETS (BEAKER) (test code = 313) Present LARGE PLT(BEAKER) (test code = 2156) Present POLYCHROMATOPHILLIC RBCS(BEAKER) (test code = 478) 1+ few HYPOCHROMIA (BEAKER) (test code = 963) 1+ few ANISOCYTOSIS (BEAKER) (test code = 961) 1+ few MICROCYTES (BEAKER) (test code = 965) 1+ few POIKILOCYTES (BEAKER) (test code = 966) 1+ few ELLIPTOCYTES (BEAKER) (test code = 962) 1+ few OVALOCYTES (BEAKER) (test code = 477) 1+ few TEAR DROP CELLS (BEAKER) (test code = 481) 1+ few ANGELO CELLS (BEAKER) (test code = 474) 1+ few ARTIFACT (CELLAVISION)(BEAKER) (test code = 3432) Present PLATELET CONCENTRATION (CELLAVISION)(BEAKER) (test code = 3438) Kamala quate [employer] ID - Danielle Kidd comments: Slide comments: WBC: SEGMENTED WI TH TOXIC GRANUALTIONS PRESENTBasic metabolic [id number] 06:42:00* Test Item Value Reference Range Interpretation Comments Sodium (test code = 2951-2) 137 meq/L 136-145 Potassium (test code = 2823-3) 3.6 meq/L 3.5-5.1 Specimen slightly hemolyzed Chloride (test code = 2075-0) 104 meq/L 98-107 CO2 (test code = 8-9) 23 meq/L 22-29 BUN (test code = 3094-0) 8 mg/dL 7-21 Creatinine (test code = 2160-0) 0.74 mg/dL 0.57-1.25 Specimen slightly hemolyzed Glucose (test code = 2345-7) 77 mg/dL 70-105 Calcium (test code = 13544-0) 8.0 mg/dL 8.4-10.2 L EGFR (test code = 15525-4) 76 mL/min/1.73 sq m ESTIMATED GFR IS NOT ACCURATE CREATININE CLEARANCE IN PREDICTING GLOMERULAR FILTRATION RATE. ESTIMATED GFR IS NOT APPLICABLE FOR DIALYSIS PATIENTS. KRYSTIAN (test code = KRYSTIAN) [facility] [employer] ID - KEL Lab Interpretation (test code = 08230-2) [facility] 06:[facility]* Test Item Value Reference Range Interpretation Comments Magnesium (test code = 15107-3) 1.7 mg/dL 1.6-2.6 Specimen slightly hemolyzed KRYSTIAN (test code = KRYSTIAN) [employer] [employer] ID - KEL Lab Interpretation (test code = 83012-1) [facility]* Test Item Value Reference Range Interpretation Comments Phosphorus (test code = 2777-1) 4.3 mg/dL 2.3-4.7 Specimen slightly hemolyzed KRSYTIAN (test code = KRYSTIAN) [facility] [employer] ID - KEL Lab Interpretation (test code = 95158-1) [facility] 06:42:00* Test Item Value Reference Range Interpretation Comments MAGNESIUM (BEAKER) (test code = 627) 1.7 mg/dL 1.6-2.6 Specimen slightly hemolyzed [id number] 06:42:00* Test Item Value Reference Range Interpretation Comments PHOSPHORUS (BEAKER) (test code = 604) 4.3 mg/dL 2.3-4.7 Specimen slightly hemolyzed [facility] [employer] YAA BEGUM MBASIC METABOLIC [id number] 06:42:00* Test Item Value Reference Range Interpretation Comments SODIUM (BEAKER) (test code = 381) 137 meq/L 136-145 POTASSIUM (BEAKER) (test code = 379) 3.6 meq/L 3.5-5.1 Specimen slightly hemolyzed CHLORIDE (BEAKER) (test code = 382) 104 meq/L 98-107 CO2 (BEAKER) (test code = 355) 23 meq/L 22-29 BLOOD UREA NITROGEN (BEAKER) (test code = 354) 8 mg/dL 7-21 CREATININE (BEAKER) (test code = 358) 0.74 mg/dL 0.57-1.25 Specimen slightly hemolyzed GLUCOSE RANDOM (BEAKER) (test code = 652) 77 mg/dL 70-105 CALCIUM (BEAKER) (test code = 697) 8.0 mg/dL 8.4-10.2 L EGFR (BEAKER) (test code = 1092) 76 mL/min/1.73 sq m ESTIMATED GFR IS NOT ACCURATE CREATININE CLEARANCE IN PREDICTING GLOMERULAR FILTRATION RATE. ESTIMATED GFR IS NOT APPLICABLE FOR DIALYSIS PATIENTS. [facility] [employer] YAA BEGUM MProthrombin time/[id number] 05:52:00* Test Item Value Reference Range Interpretation Comments Protime (test code = 5902-2) 19.2 11.9- 14.2 seconds H INR (test code = 6301-6) 1.7 <=5.9 KRYSTIAN (test code = KRYSTIAN) Effective 02/17/2019: PT Refe rence Range ChangeNew: 11.9- 14.2 Previous: 11.7-14.7 RECOMMENDED COUMADIN/WARFARIN INR THERAPY RANGESSTANDARD DOSE: 2.0-3.0 Includes: PROPHYLAXIS for venous thrombosis, sys temic embolization; TREATMENT for venous thrombosis and/or pulmonary embolus.HIGH RISK: Target INR is 2.5-3.5 for patients wiht mechanical heart valves. Lab Interpretation (test code = 59835-2) [facility]/[id number] 05:52:00* Test Item Value Reference Range Interpretation Comments PROTIME (BEAKER) (test code = 759) 19.2 seconds 11.9-14.2 H INR (BEAKER) (test code = 370) 1.7 <=5.9 Effective 02/17/2019: PT Reference Range ChangeNew: 11.9-14.2 Previous: 11.7-14. 7RECOMMENDED COUMADIN/WARFARIN INR THERAPY RANGESSTANDARD DOSE: 2.0-3.0 Include s: PROPHYLAXIS for venous thrombosis, systemic embolization; TREATMENT for venou s thrombosis and/or pulmonary embolus.HIGH RISK: Target INR is 2.5-3.5 for patie nts wiht mechanical heart valves.CBC W/PLT COUNT & AUTO [id number] 11:33:00* Test Item Value Reference Range Interpretation Comments WHITE BLOOD CELL COUNT (BEAKER) (test code = 775) 23.4 K/ L 3.5- 10.5 H RED BLOOD CELL COUNT (BEAKER) (test code = 761) 3.18 M/ L 3.93-5 .22 L HEMOGLOBIN (BEAKER) (test code = 410) 10.7 GM/DL 11.2-15.7 L HEMATOCRIT (BEAKER) (test code = 411) 33.0 % 34.1-44.9 L MEAN CORPUSCULAR VOLUME (BEAKER) (test code = 753) 103.8 fL 79. 4-94.8 H MEAN CORPUSCULAR HEMOGLOBIN (BEAKER) (test code = 751) 33.6 pg 25.6-32.2 H MEAN CORPUSCULAR HEMOGLOBIN CONC (BEAKER) (test code = 752) 32.4 GM/DL 32.2-35.5 RED CELL DISTRIBUTION WIDTH (BEAKER) (test code = 412) 14.2 % 11.7-14.4 PLATELET COUNT (BEAKER) (test code = 756) 148 K/CU MM 150-450 L MEAN PLATELET VOLUME (BEAKER) (test code = 754) 11.3 fL 9.4-12 .3 NUCLEATED RED BLOOD CELLS (BEAKER) (test code = 413) 0 /100 WBC 0 -0 (CELLAVISION MANUAL DIFF)2020-03-03 11:33:00* Test Item Value Reference Range Interpretation Comments NEUTROPHILS - REL (CELLAVISION)(BEAKER) (test code = 2816) 81 % LYMPHOCYTES - REL (CELLAVISION)(BEAKER) (test code = 2817) 5 % MONOCYTES - REL (CELLAVISION)(BEAKER) (test code = 2818) 5 % EOSINOPHILS - REL (CELLAVISION)(BEAKER) (test code = 2819) 1 % METAMYELOCYTES - REL (CELLAVISION)(BEAKER) (test code = 2821) 1 % 0-0 H MYELOCYTES - REL (CELLAVISION)(BEAKER) (test code = 2822) 2 % 0-0 H BANDS - REL (CELLAVISION)(BEAKER) (test code = 2826) 4 % 0 -10 ATYPICAL LYMPHOCYTES - REL (CELLAVISION)(BEAKER) (test code = 2829) 1 % 0-0 H NEUTROPHILS - ABS (CELLAVISION)(BEAKER) (test code = 2830) 18.95 K/ul 1.56-6.13 H LYMPHOCYTES - ABS (CELLAVISION)(BEAKER) (test code = 2831) 1.17 K/ul 1.18-3.74 L MONOCYTES - ABS (CELLAVISION)(BEAKER) (test code = 2832) 1.17 K/uL 0.24-0.36 H EOSINOPHILS - ABS (CELLAVISION)(BEAKER) (test code = 2834) 0.23 K/uL 0.04-0.36 METAMYELOCYTES - ABS (CELLAVISION)(BEAKER) (test code = 2836 ) 0.23 K/uL 0.00-0.00 H MYELOCYTES-ABS (CELLAVISION)(BEAKER) (test code = 2837) 0.47 K/uL 0.00-0.00 H BANDS - ABS (CELLAVISION)(BEAKER) (test code = 2840) 0.94 K/uL 0 .00-0.80 H ATYPICAL LYMPHOCYTES - ABS (CELLAVISION)(BEAKER) (test code = 2858) 0.23 K/uL 0.00-0.00 H TOTAL COUNTED (BEAKER) (test code = 1351) 100 WBC MORPHOLOGY (BEAKER) (test code = 487) Normal PLT MORPHOLOGY (BEAKER) (test code = 486) Normal POIKILOCYTES (BEAKER) (test code = 966) 1+ few ARTIFACT (CELLAVISION)(BEAKER) (test code = 3432) Present PLATELET CONCENTRATION (CELLAVISION)(BEAKER) (test code = 3438) Dec reased [facility] [employer] ID Odalys Almanza OverholtUser comments: Slide comments: BASIC METABOLIC PANEL 2020-03-03 06:15:00* Test Item Value Reference Range Interpretation Comments SODIUM (BEAKER) (test code = 381) 138 meq/L 136-145 POTASSIUM (BEAKER) (test code = 379) 3.6 meq/L 3.5-5.1 CHLORIDE (BEAKER) (test code = 382) 108 meq/L 98-107 H CO2 (BEAKER) (test code = 355) 22 meq/L 22-29 BLOOD UREA NITROGEN (BEAKER) (test code = 354) 7 mg/dL 7-21 CREATININE (BEAKER) (test code = 358) 0.77 mg/dL 0.57-1.25 GLUCOSE RANDOM (BEAKER) (test code = 652) 80 mg/dL 70-105 CALCIUM (BEAKER) (test code = 697) 7.9 mg/dL 8.4-10.2 L EGFR (BEAKER) (test code = 1092) 72 mL/min/1.73 sq m ESTIMATED GFR IS NOT ACCURATE CREATININE CLEARANCE IN PREDICTING GLOMERULAR FILTRATION RATE. ESTIMATED GFR IS NOT APPLICABLE FOR DIALYSIS PATIENTS. [facility] [employer] ID - KEL MPROTHROMBIN TIME/[id number] 05:55:00* Test Item Value Reference Range Interpretation Comments PROTIME (BEAKER) (test code = 759) 18.5 seconds 11.9-14.2 H INR (BEAKER) (test code = 370) 1.6 <=5.9 Effective 02/17/2019: PT Reference Range ChangeNew: 11.9-14.2 Previous: 11.7-14. 7RECOMMENDED COUMADIN/WARFARIN INR THERAPY RANGESSTANDARD DOSE: 2.0-3.0 Include s: PROPHYLAXIS for venous thrombosis, systemic embolization; TREATMENT for venou s thrombosis and/or pulmonary embolus.HIGH RISK: Target INR is 2.5-3.5 for patie nts wiht mechanical heart valves.[id number] 05:52:00* Test Item Value Reference Range Interpretation Comments PHOSPHORUS (BEAKER) (test code = 604) 3.5 mg/dL 2.3-4.7 [facility] [employer] ID - KEL [id number] 05:52:00* Test Item Value Reference Range Interpretation Comments MAGNESIUM (BEAKER) (test code = 627) 1.8 mg/dL 1.6-2.6 [employer] ID - KEL MCBC W/PLT COUNT & AUTO [id number] 07:22:00* Test Item Value Reference Range Interpretation Comments WHITE BLOOD CELL COUNT (BEAKER) (test code = 775) 23.9 K/ L 3.5- 10.5 H RED BLOOD CELL COUNT (BEAKER) (test code = 761) 3.14 M/ L 3.93-5 .22 L HEMOGLOBIN (BEAKER) (test code = 410) 10.5 GM/DL 11.2-15.7 L HEMATOCRIT (BEAKER) (test code = 411) 32.0 % 34.1-44.9 L MEAN CORPUSCULAR VOLUME (BEAKER) (test code = 753) 101.9 fL 79. 4-94.8 H MEAN CORPUSCULAR HEMOGLOBIN (BEAKER) (test code = 751) 33.4 pg 25.6-32.2 H MEAN CORPUSCULAR HEMOGLOBIN CONC (BEAKER) (test code = 752) 32.8 GM/DL 32.2-35.5 RED CELL DISTRIBUTION WIDTH (BEAKER) (test code = 412) 13.7 % 11.7-14.4 PLATELET COUNT (BEAKER) (test code = 756) 139 K/CU MM 150-450 L MEAN PLATELET VOLUME (BEAKER) (test code = 754) 11.2 fL 9.4-12 .3 NUCLEATED RED BLOOD CELLS (BEAKER) (test code = 413) 0 /100 WBC 0 -0 (CELLAVISION MANUAL DIFF)2020-03-02 07:22:00* Test Item Value Reference Range Interpretation Comments NEUTROPHILS - REL (CELLAVISION)(BEAKER) (test code = 2816) 85 % LYMPHOCYTES - REL (CELLAVISION)(BEAKER) (test code = 2817) 1 % MONOCYTES - REL (CELLAVISION)(BEAKER) (test code = 2818) 4 % BASOPHILS - REL (CELLAVISION)(BEAKER) (test code = 2820) 1 % METAMYELOCYTES - REL (CELLAVISION)(BEAKER) (test code = 2821) 1 % 0-0 H MYELOCYTES - REL (CELLAVISION)(BEAKER) (test code = 2822) 3 % 0-0 H PROMYELOCYTES - REL (CELLAVSION)(BEAKER) (test code = 2825) 2 % 0-0 H BANDS - REL (CELLAVISION)(BEAKER) (test code = 2826) 3 % 0 -10 NEUTROPHILS - ABS (CELLAVISION)(BEAKER) (test code = 2830) 20.32 K/ul 1.56-6.13 H LYMPHOCYTES - ABS (CELLAVISION)(BEAKER) (test code = 2831) 0.24 K/ul 1.18-3.74 L MONOCYTES - ABS (CELLAVISION)(BEAKER) (test code = 2832) 0.96 K/uL 0.24-0.36 H BASOPHILS - ABS (CELLAVISION)(BEAKER) (test code = 2835) 0.24 K/uL 0.01-0.08 H METAMYELOCYTES - ABS (CELLAVISION)(BEAKER) (test code = 2836 ) 0.24 K/uL 0.00-0.00 H MYELOCYTES-ABS (CELLAVISION)(BEAKER) (test code = 2837) 0.72 K/uL 0.00-0.00 H PROMYELOCYTES - ABS (CELLAVISION)(BEAKER) (test code = 2838) 0.48 K/uL 0.00-0.00 H BANDS - ABS (CELLAVISION)(BEAKER) (test code = 2840) 0.72 K/uL 0 .00-0.80 TOTAL COUNTED (BEAKER) (test code = 1351) 100 PLT MORPHOLOGY (BEAKER) (test code = 486) Normal DOHLE BODIES (BEAKER) (test code = 359) Present TOXIC GRANULATION (BEAKER) (test code = 771) Present ANISOCYTOSIS (BEAKER) (test code = 961) 1+ few MICROCYTES (BEAKER) (test code = 965) 1+ few ACANTHOCYTES (BEAKER) (test code = 471) 1+ few PLATELET CONCENTRATION (CELLAVISION)(BEAKER) (test code = 3438) Dec reased [employer] ID - [id number] ID - Waleska Armas comments: Slide comments: Creatine Kinase (CK)2020-03-02 04:04:00* Test Item Value Reference Range Interpretation Comments Total CK (test code = 2157-6) 44 U/L 29-200 KRYSTIAN (test code = KRYSTIAN) [employer] ID - ELLE L Lab Interpretation (test code = 61820-8) Normal [id number] 04:04:00* Test Item Value Reference Range Interpretation Comments PHOSPHORUS (BEAKER) (test code = 604) 2.8 mg/dL 2.3-4.7 [employer] ID - ELLE [id number] 04:04:00* Test Item Value Reference Range Interpretation Comments MAGNESIUM (BEAKER) (test code = 627) 1.9 mg/dL 1.6-2.6 [employer] ID - ELLE LBASIC METABOLIC [id number] 04:04:00* Test Item Value Reference Range Interpretation Comments SODIUM (BEAKER) (test code = 381) 138 meq/L 136-145 POTASSIUM (BEAKER) (test code = 379) 3.9 meq/L 3.5-5.1 CHLORIDE (BEAKER) (test code = 382) 107 meq/L 98-107 CO2 (BEAKER) (test code = 355) 23 meq/L 22-29 BLOOD UREA NITROGEN (BEAKER) (test code = 354) 12 mg/dL 7-21 CREATININE (BEAKER) (test code = 358) 0.82 mg/dL 0.57-1.25 GLUCOSE RANDOM (BEAKER) (test code = 652) 88 mg/dL 70-105 CALCIUM (BEAKER) (test code = 697) 8.1 mg/dL 8.4-10.2 L EGFR (BEAKER) (test code = 1092) 67 mL/min/1.73 sq m ESTIMATED GFR IS NOT ACCURATE CREATININE CLEARANCE IN PREDICTING GLOMERULAR FILTRATION RATE. ESTIMATED GFR IS NOT APPLICABLE FOR DIALYSIS PATIENTS. [employer] ID - SABINEAYA LCREATINE KINASE (CK)2020-03-02 04:04:00* Test Item Value Reference Range Interpretation Comments CREATINE KINASE TOTAL (BEAKER) (test code = 380) 44 U/L 29-20 0 [employer] ID - PIAYA LPROTHROMBIN TIME/[id number] 04:02:00* Test Item Value Reference Range Interpretation Comments PROTIME (BEAKER) (test code = 759) 16.2 seconds 11.9-14.2 H INR (BEAKER) (test code = 370) 1.3 <=5.9 Effective 02/17/2019: PT Reference Range ChangeNew: 11.9-14.2 Previous: 11.7-14. 7RECOMMENDED COUMADIN/WARFARIN INR THERAPY RANGESSTANDARD DOSE: 2.0-3.0 Include s: PROPHYLAXIS for venous thrombosis, systemic embolization; TREATMENT for venou s thrombosis and/or pulmonary embolus.HIGH RISK: Target INR is 2.5-3.5 for patie nts wiht mechanical heart valves.B-type Natriuretic Factor (BNP)2020-03-01 16:55:00* Test Item Value Reference Range Interpretation Comments BNP (test code = 91428-6) 233 pg/mL 0-100 H KRYSTIAN (test code = KRYSTIAN) [facility] ID - DB Lab Interpretation (test code = 19037-6) [facility] (BNP)2020-03-01 16:55:00 * Test Item Value Reference Range Interpretation Comments B-TYPE NATRIURETIC PEPTIDE (BEAKER) (test code = 700) 233 pg/mL 0-100 H [employer] ID - DBPROTHROMBIN TIME/[id number] 16:41:00* Test Item Value Reference Range Interpretation Comments PROTIME (BEAKER) (test code = 759) 17.6 seconds 11.9-14.2 H INR (BEAKER) (test code = 370) 1.5 <=5.9 Effective 02/17/2019: PT Reference Range ChangeNew: 11.9-14.2 Previous: 11.7-14. 7RECOMMENDED COUMADIN/WARFARIN INR THERAPY RANGESSTANDARD DOSE: 2.0-3.0 Include s: PROPHYLAXIS for venous thrombosis, systemic embolization; TREATMENT for venou s thrombosis and/or pulmonary embolus.HIGH RISK: Target INR is 2.5-3.5 for patie nts wiht mechanical heart valves.Urinalysis w/Cfaqsdctfev9766-99-13 16:11:00* Test Item Value Reference Range Interpretation Comments Color, UA (test code = 5778-6) Yellow Clarity, UA (test code = 5767-9) Hazy Specific [place], UA (test code = 5811-5) 1.011 1.001-1.035 pH, UA (test code = 5803-2) 5.5 5.0-8.0 Protein, UA (test code = 87664-6) Negative Negative Glucose, UA (test code = 365) Negative Negative Ketones, UA (test code = 2514-8) Negative Negative Bilirubin, UA (test code = 64557-2) Negative Negative Blood, UA (test code = 51048-2) Moderate Negative A Nitrite, UA (test code = 5802-4) Negative Negative Leukocytes, UA (test code = 5799-2) Moderate Negative A Urobilinogen, UA (test code = 46108-4) 0.2 mg/dL 0.2-1 RBC, UA (test code = 48688-5) 13 /HPF WBC, UA (test code = 5821-4) 9 /HPF Bacteria, UA (test code = 83122-4) Occasional Squam Epithel, UA (test code = 11946-6) 2 /HPF Hyaline Casts, UA (test code = 72976-4) 16 /LPF Yeast (test code = 39868-1) Occasional Specimen Source (test code = 2795) Urine, Voided KRYSTIAN (test code = KRYSTIAN) [employer] ID - [auto][employer] ID - tech Lab Interpretation (test code = 18842-5) [facility]/ [id number] 16:11:00* Test Item Value Reference Range Interpretation Comments COLOR (BEAKER) (test code = 470) Yellow CLARITY (BEAKER) (test code = 469) Hazy SPECIFIC GRAVITY UA (BEAKER) (test code = 468) 1.011 1.001-1 .035 PH UA (BEAKER) (test code = 467) 5.5 5.0-8.0 PROTEIN UA (BEAKER) (test code = 464) Negative Negative GLUCOSE UA (BEAKER) (test code = 365) Negative Negative KETONES UA (BEAKER) (test code = 371) Negative Negative BILIRUBIN UA (BEAKER) (test code = 462) Negative Negative BLOOD UA (BEAKER) (test code = 461) Moderate Negative A NITRITE UA (BEAKER) (test code = 465) Negative Negative LEUKOCYTE ESTERASE UA (BEAKER) (test code = 466) Moderate Negat kendal A UROBILINOGEN UA (BEAKER) (test code = 463) 0.2 mg/dL 0.2-1.0 RBC UA (BEAKER) (test code = 519) 13 /HPF WBC UA (BEAKER) (test code = 520) 9 /HPF BACTERIA (BEAKER) (test code = 517) Occasional SQUAMOUS EPITHELIAL (BEAKER) (test code = 516) 2 /HPF HYALINE CASTS (BEAKER) (test code = 514) 16 /LPF YEAST (BEAKER) (test code = 1585) Occasional SOURCE(BEAKER) (test code = 2795) Urine, Voided [employer] ID - [auto][employer] ID - techSARS-CoV2/RT-PCR (Symptomatic ONLY) 2020-03-01 15:15:00* Test Item Value Reference Range Interpretation Comments SARS-COV2/RT-PCR (test code = 43444-2) Not Detected Not Detected, N egative SARS-COV-2 PERFORMING LAB (test code = 08996-1) [facility] KRYSTIAN (test code = KRYSTIAN) Negative results do not prec lude SARS-CoV-2 infection and should not be used as the sole basis for patient management decisions. Negative results must be combined with clinical observations, patient history, and epidemiological information. A false negative result may occur if a specimen is improperly collected, transported or handled. The limit of detection for this assay is 250 copies/mL. This SARS CoV-2 test is a rapid, real-time RT-PCR test intended for the qualitative detection of nucleic acid from SARS-CoV-2 in a nasopharyngeal swab specimen collected from individuals suspected of COVID-19 by their healthcare provider. This test has not been Food and Drug Administration (FDA) cleared or approved and has been authorized by FDA under an Emergency Use Authorization (EUA). This EUA will be effective until the declaration that circumstances exist justifying the authorization of the emergency use of in vitro diagnostic tests for detection and/or diagnosis of COVID-19 is terminated under Section 564(b)(2) of the Act or the EUA is revoked under Section 564(g) of the Act. Fact Sheet for Healthcare Providers:https://www.Ch[employer]/Documents/Xpert%20Xpress%20SARS%20CoV-2/Fact%2 0Sheets/302-3802%02UZJS-QCK-3%20HEALTHCARE%20PROVIDERS%20FACT%20SHEET.pdf Fact Sheet for Healthcare Patients:https://www.Ch[employer]/Documents/Xpert%20Xpress%20SARS%20CoV-2/Fact%20 Sheets/302-3801%98USCY-LPO-1%20PATIENT%20FACT%20SHEET.pdf Performing Laboratory:[facility] [place] [address] JosephARS-COV2/RT-PCR ([facility])2020-03-01 15:15:00* Test Item Value Reference Range Interpretation Comments SARS-COV2/RT-PCR (test code = 4906549) Not Detected Not Detected, N egative SARS-COV-2 PERFORMING LAB (test code = 1511133) [facility] Negative results do not preclude SARS-CoV-2 infection and should not be used as the sole basis for patient management decisions. Negative results must be combin ed with clinical observations, patient history, and epidemiological information. A false negative result may occur if a specimen is improperly collected, transp orted or handled.The limit of detection for this assay is 250 copies/mL.This [facility] CoV-2 test is a rapid, real-time RT-PCR test intended for the qualitative dete ction of nucleic acid from SARS-CoV-2 in a nasopharyngeal swab specimen collecte d from individuals suspected of COVID-19 by their healthcare provider.This test has not been Food and Drug Administration (FDA) cleared or approved and has been authorized by FDA under an Emergency Use Authorization (EUA). This EUA will be effective until the declaration that circumstances exist justifying the authoriz ation of the emergency use of in vitro diagnostic tests for detection and/or maggie gnosis of COVID-19 is terminated under Section 564(b)(2) of the Act or the EUA i s revoked under Section 564(g) of the Act.Fact Sheet for Healthcare Providers:ht tps://www.[employer]/Documents/Xpert%20Xpress%20SARS%20CoV-2/Fact%20Sheets/302- 3802%54ZOQG-RFU-8%20HEALTHCARE%20PROVIDERS%20FACT%20SHEET.pdfFact Sheet for Heal thcare Patients:https://www.Chrends/Documents/Xpert%20Xpress%20SARS%20CoV-2/ Fact%20Sheets/302-3801%78DDAT-MCZ-7%20PATIENT%20FACT%20SHEET.pdfPerforming Labor atory:[facility], [place] [address]YOZ W/PLT COUNT & AUTO [id number] 14:42:00* Test Item Value Reference Range Interpretation Comments WHITE BLOOD CELL COUNT (BEAKER) (test code = 775) 20.7 K/ L 3.5- 10.5 H RED BLOOD CELL COUNT (BEAKER) (test code = 761) 3.29 M/ L 3.93-5 .22 L HEMOGLOBIN (BEAKER) (test code = 410) 10.9 GM/DL 11.2-15.7 L HEMATOCRIT (BEAKER) (test code = 411) 33.3 % 34.1-44.9 L MEAN CORPUSCULAR VOLUME (BEAKER) (test code = 753) 101.2 fL 79. 4-94.8 H MEAN CORPUSCULAR HEMOGLOBIN (BEAKER) (test code = 751) 33.1 pg 25.6-32.2 H MEAN CORPUSCULAR HEMOGLOBIN CONC (BEAKER) (test code = 752) 32.7 GM/DL 32.2-35.5 RED CELL DISTRIBUTION WIDTH (BEAKER) (test code = 412) 13.2 % 11.7-14.4 PLATELET COUNT (BEAKER) (test code = 756) 141 K/CU MM 150-450 L MEAN PLATELET VOLUME (BEAKER) (test code = 754) 11.3 fL 9.4-12 .3 NUCLEATED RED BLOOD CELLS (BEAKER) (test code = 413) 0 /100 WBC 0 -0 (CELLAVISION MANUAL DIFF)2020-03-01 14:38:00* Test Item Value Reference Range Interpretation Comments NEUTROPHILS - REL (CELLAVISION)(BEAKER) (test code = 2816) 86 % LYMPHOCYTES - REL (CELLAVISION)(BEAKER) (test code = 2817) 2 % MONOCYTES - REL (CELLAVISION)(BEAKER) (test code = 2818) 5 % MYELOCYTES - REL (CELLAVISION)(BEAKER) (test code = 2822) 2 % 0-0 H PROMYELOCYTES - REL (CELLAVSION)(BEAKER) (test code = 2825) 1 % 0-0 H BANDS - REL (CELLAVISION)(BEAKER) (test code = 2826) 3 % 0 -10 ATYPICAL LYMPHOCYTES - REL (CELLAVISION)(BEAKER) (test code = 2829) 1 % 0-0 H NEUTROPHILS - ABS (CELLAVISION)(BEAKER) (test code = 2830) 17.80 K/ul 1.56-6.13 H LYMPHOCYTES - ABS (CELLAVISION)(BEAKER) (test code = 2831) 0.41 K/ul 1.18-3.74 L MONOCYTES - ABS (CELLAVISION)(BEAKER) (test code = 2832) 1.04 K/uL 0.24-0.36 H MYELOCYTES-ABS (CELLAVISION)(BEAKER) (test code = 2837) 0.41 K/uL 0.00-0.00 H PROMYELOCYTES - ABS (CELLAVISION)(BEAKER) (test code = 2838) 0.21 K/uL 0.00-0.00 H BANDS - ABS (CELLAVISION)(BEAKER) (test code = 2840) 0.62 K/uL 0 .00-0.80 ATYPICAL LYMPHOCYTES - ABS (CELLAVISION)(BEAKER) (test code = 2858) 0.21 K/uL 0.00-0.00 H TOTAL COUNTED (BEAKER) (test code = 1351) 100 WBC MORPHOLOGY (BEAKER) (test code = 487) Normal PLT MORPHOLOGY (BEAKER) (test code = 486) Normal ANISOCYTOSIS (BEAKER) (test code = 961) 1+ few MACROCYTES (BEAKER) (test code = 964) 1+ few SPHEROCYTES (BEAKER) (test code = 768) 1+ few ARTIFACT (CELLAVISION)(BEAKER) (test code = 3432) Present PLATELET CONCENTRATION (CELLAVISION)(BEAKER) (test code = 3438) Dec reased [facility] [employer] ID - [id number] ID - Waleska Armas comments: Slide comments: RAD, CHEST, PA OR AP, 1 [id number] 13:48:00Reason for exam:->FEVERShould this be performed at the bedside?->NoFINAL REPORT CLINICAL HISTORY: FEVER TECHNIQUE: 1 view of the chest. COMPARISON: 08/05/2018 IMPRESSION: There are no focal infiltrates. There is blunting of the left costophrenic angle. The cardiomediastinal silhouette is magnified by technique with a pacemaker. There is a left chest wall port near the cavoatrial junction. Tubing again projects over the left hemithorax. Signed: Jana Bower Verified Date/Time: 03/01/2020 13:48:00 Reading Location: [facility] Radiology Reading Room chest PA or AP 1 view in [id number] 13:48:00 Interface, External Ris In - 03/01/2020 1:50 PM CDTFINAL REPORT PATIENT ID: [id number] CLINICAL HISTORY: FEVER TECHNIQUE: 1 view of the chest. COMPARISON: IMPRESSION: There are no focal infiltrates. There is blunting of the lef t costophrenic angle. The cardiomediastinal silhouette is magnified by technique with a pacemaker. There is a left chest wall port near the cavoatrial junction. Tubing again projects over the left hemithorax. Signed: Jana Bower Verified Date/Time: 03/01/2020 13:48:00 Reading Location: [facility] Radiolo gy Reading Room Electronically signed by: JANA BOWER M.D. on 0 01:48 PM [facility] [id number] 13:31:00* Test Item Value Reference Range Interpretation Comments Protein, Total (test code = 2885-2) 6.1 6.0- 8.3 gm/dL Albumin (test code = 04072-4) 3.8 g/dL 3.5-5 Alkaline Phosphatase (test code = 6768-6) 101 U/L 40-150 Total Bilirubin (test code = 1974-2) 0.4 mg/dL 0.2-1.2 Sodium (test code = 2951-2) 132 meq/L 136-145 L Potassium (test code = 2823-3) 4.0 meq/L 3.5-5.1 Chloride (test code = 5-0) 99 meq/L 98-107 CO2 (test code = 2027-9) 25 meq/L 22-29 BUN (test code = 3094-0) 17 mg/dL 7-21 Creatinine (test code = 2160-0) 1.01 mg/dL 0.57-1.25 Glucose (test code = 2345-7) 98 mg/dL 70-105 Calcium (test code = 67101-2) 8.8 mg/dL 8.4-10.2 AST (test code = 1920-8) 19 U/L 5-34 ALT (test code = 1742-6) 18 U/L 6-55 EGFR (test code = 91317-0) 53 mL/min/1.73 sq m ESTIMATED GFR IS NOT ACCURATE CREATININE CLEARANCE IN PREDICTING GLOMERULAR FILTRATION RATE. ESTIMATED GFR IS NOT APPLICABLE FOR DIALYSIS PATIENTS. KRYSTIAN (test code = KRYSTIAN) [employer] ID - NTP Lab Interpretation (test code = 72995-7) [facility]normal [facility] [id number] 13:31:00* Test Item Value Reference Range Interpretation Comments TOTAL PROTEIN (BEAKER) (test code = 770) 6.1 gm/dL 6.0-8.3 ALBUMIN (BEAKER) (test code = 1145) 3.8 g/dL 3.5-5.0 ALKALINE PHOSPHATASE (BEAKER) (test code = 346) 101 U/L 40-150 BILIRUBIN TOTAL (BEAKER) (test code = 377) 0.4 mg/dL 0.2-1.2 SODIUM (BEAKER) (test code = 381) 132 meq/L 136-145 L POTASSIUM (BEAKER) (test code = 379) 4.0 meq/L 3.5-5.1 CHLORIDE (BEAKER) (test code = 382) 99 meq/L 98-107 CO2 (BEAKER) (test code = 355) 25 meq/L 22-29 BLOOD UREA NITROGEN (BEAKER) (test code = 354) 17 mg/dL 7-21 CREATININE (BEAKER) (test code = 358) 1.01 mg/dL 0.57-1.25 GLUCOSE RANDOM (BEAKER) (test code = 652) 98 mg/dL 70-105 CALCIUM (BEAKER) (test code = 697) 8.8 mg/dL 8.4-10.2 AST (SGOT) (BEAKER) (test code = 353) 19 U/L 5-34 ALT (SGPT) (BEAKER) (test code = 347) 18 U/L 6-55 EGFR (BEAKER) (test code = 1092) 53 mL/min/1.73 sq m ESTIMATED GFR IS NOT ACCURATE CREATININE CLEARANCE IN PREDICTING GLOMERULAR FILTRATION RATE. ESTIMATED GFR IS NOT APPLICABLE FOR DIALYSIS PATIENTS. [employer] ID - NTPLactic acid, [id number] 13:25:00* Test Item Value Reference Range Interpretation Comments Lactate, Venous (test code = 2872) 0.91 mmol/L 0.5-2.2 KRYSTIAN (test code = KRYSTIAN) [employer] [employer] ID - AAHAMID Lab Interpretation (test code = 35532-4) Normal [facility], [id number] 13:25:00* Test Item Value Reference Range Interpretation Comments LACTATE BLOOD VENOUS (2) (AKER) (test code = 2872) 0.91 mmol/L 0 .50-2.20 [employer] [employer] ID - AAHAMIDMAMMOGRAPHY DIGITAL DX [facility] [id number] 15:22:00 [place] [address] Patient Name: SAM BAILEY MR #: [id number] : 1940 Age/Sex: 79/F Req #: [id number] Adm Physician: Ordered by: BEREKET CANAS M.D. Report #: [id number] Location: Room/Bed: Procedure: 4657-4339 MG/MAMM OGRAPHY DIGITAL DX UNI LT Exam Date: 01/24/20 Exam T grant: [id number] REPORT STATUS: Signed #[id number] - MGDXLT #UNILATERAL LEFT DIGITAL DIAGNOSTIC MAMMOGRAM POST- NEEDLE BIOPSY: 01/24/2020 Comparison is made to exams dated: 01/24/2020 ultrasoun d biopsy and 01/12/2020 mammogram - [facility]. The tissue of the left breast is predominantly fatty. Mammographic images confi rm biopsy clip in the left breast at 1 o'clock posterior depth associated wit h the biopsied axillary tail mass. IMPRESSION: POST PROCEDURE MAMMOGRAM FOR MARKER PLACEMENT Successful marker clip placement at axillary tail mass fo llowing ultrasound guided biopsy. Follow-up with ACR/ACS guidelines. RENUKA VERMA M.D. kw/:01/24/2020 16:28:17 Restorative Art Embalmer: Samia Garzon RT(R)(M), [facility] Mammogram BI-RADS: Post-procedure mammogram for marker placement Dictated By: RENAE VERMA MD El ectronically Signed By: RENAE VERMA MD on 01/24/201627 Transcribed By: JIGAR rios 01/24/201627 COPY TO: BEREKET CANAS M.D. BX BRST 1ST LESION [id number] 15:21:00 [place] [address] Patient Name: SAM BAILEY MR #: [id number] : 1940 Age/Sex: 79/F Req #: [id number] Adm Physician: Ordered by: BEREKET CANAS M.D. 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 PATIENT CONSENT: According to [facility] requirements, a time out was performed, correct site was localized and the patient was con sented. PROCEDURE DESCRIPTION: Written informed consent for biopsy and ma rker placement was obtained after full discussion with patient of procedure, risks, benefits and alternatives. A weld inspector out was taken to confirm patien t and procedure. Correlation is made to exams dated: 01/12/2020 mammogram, 01/12/2020 ultrasound - [facility] and 04/14/2019 mamm ogram - [facility]. An ultrasound guided biopsy using real-ti me ultrasound was performed for the 2 cm abnormality located in the left axil lena tail. The skin was prepped in the usual manner. A biopsy needle was pl aced adjacent to the abnormality under ultrasound guidance. Once the needle was documented to be in the correct location, 3 specimens were obtained using a 1 4 gauge automated biopsy device. A marker clip was placed at the biopsy site. The specimen was sent to the laboratory for pathological analysis. IMPRESSION: ULTRASOUND GUIDED BIOPSY Ultrasound guided biopsy of the 2 cm abno rmality in the left axillary tail was successful. Follow-up with ACR/ACS romana delines. RENAE VERMA M.D. kw/:01/24/2020 16:26:52 Imaging Technol ogist: SUE SIMONS [facility], [facility] [id number] Dic tated By: RENAE VERMA MD 162 6 Transcribed By: JIGAR on 01/24/20 1626 COPY TO: BEREKET CANAS M.D. MAMMOGRAPHY DIGITAL DX [id number] 12:55:00 [place] [address] Patient Name: SAM BAILEY MR #: [id number] : 1940 Age/Sex: 79/F Req #: [id number] Adm Physician: Ordered by: BEREKET CANAS M.D. Report #: [id number] Location: MAMMO Room/Bed: Procedure: 0422-0 003 MG/MAMMOGRAPHY DIGITAL DX BILAT Exam Date: 01/12/20 Exam Time: 1055 REPORT STATUS: Signed #[id number] - MGDXBIL #BILATERAL DIGITAL DIAGNOSTIC MAMMOGRAM WITH CAD: 01/12/2020 Comparison is made to exam dated: 04/14/2019 mammogram - [facility]. The tissue of both breasts is predominantly fatty. Current study was also evaluated with a Computer Aided Detection (CAD) syst em. There is a 3.7 cm oval high density mass with a circumscribed margin in the left breast at 1 o'clock posterior depth. No other significant masses , calcifications, or other findings are seen in either breast. IMPRESSION : INCOMPLETE: NEEDS ADDITIONAL IMAGING EVALUATION The 3.7 cm oval high density mass in the left breast is indeterminate. An ultrasound is recommended. RENAE corbin/jigar:01/14/2020 15:26:55 Imaging T echnologist: Lalitha Garzon RT(R)(M), [facility] Ma mmogram BI-RADS: 0 Indeterminate Dictated By: RENAE VERMA MD 1526 Transcribed By: JIGAR on 01/14/20 15 COPY TO: BEREKET CANAS M.D. US BREAST LIMITED LEFT 2020-01-12 12:46:00 [facility] [address] [place] [address] Patient Name: SAM BAILEY MR #: [id number] : 1940 Age/Sex: 79/F Req #: [id number] Adm Physician: Ordered by: BEREKET CANAS M.D. Report #: [id number] Location: MAMMO Room/Bed: Procedure: 0422-0 005 US/US BREAST LIMITED LEFT Exam Date: Exam Time: REPORT STATUS: Signed #[id number] - USBRELIMLT ULTRASOUND OF THE LEFT BREAST : 01/12/2020 Comparison is made to exams dated: 01/12/2020 mammogram - [facility] and 04/14/2019 mammogram - [facility]. Color flow and ramon l-time ultrasound were performed on the left breast. Gomez scale images of the real-time examination were reviewed. There is a are two wider than tall ov al masses with a circumscribed margins in the left axillary tail measuring up to 3.5cm and 1.9cm. IMPRESSION: SUSPICIOUS OF MALIGNANCY - FOLLOW-UP RECOMMENDED The masses in the left axillary tail are suspicious. A biopsy is recommended. A phone call was made to the physician's office. The patien t has been or will be contacted. RENAE VERMA M.D. kw/:01/14/2020 15:29: 32 Restorative Art Embalmer: Prudence Dominguez [facility], [facility] letter sent: Biopsy Required Ultrasound BI-RADS: 4 Suspicious abn ormality Dictated By: RENAE VERMA MD 28 Transcribed By: JIGAR on 01/14/201528 COPY TO: BEREKET GOODRICH M.D. - XR FLUORO FOR SPINE [id number] 18:12:00 Patient Name: SAM BAILEY Unit No: [id number] EXAMS: CPT CODE: [id number] XR FLUORO FOR SPINE INJ 64444 Bilateral HIP INJECTION REFERRING PHYSICIAN: PREOPERATIVE DIAGNOSIS: 1.Bilateral hip arthropathy POSTOPERATIVE DIAGNOSIS: 1 bilateral hip arthropathy . 2.Findings: PROCEDURES PERFORMED: 1.Fluoroscopic guided needle localization of bilateral hip julia int. 2.Arthrogram of bilateral hip joint and placement of local anesthetic and steroids in bilateral hip joint. FINDINGS: 1. Good spread in both joints both joints appear to be intact ANTIBI OTIC:Cefazolin ESTIMATED BLOOD LOSS: Minimal ANESTHE ALTHEA: (TIVA) Total intravenous anesthetic (patient intolerant to sedatives and hypnotics) COMPLICATIONS: None DETAILS OF PROCED URE: After obtaining stable vital signs, informed consent and IV access, w ith no known contraindications to proceeding, the patient was taken to the fluoroscopy suite and placed in a supine position with all extremities pa dded and appropriate monitors placed. Using standard technique, and fluor oscopic guidance, a 27-gauge needle was advanced into the bilateral hip julia int and 2 mL of Isovue-300 contrast was injected to produce an arthrogram. No paresthesias were noted with placement of the needle. The results of the arthrogram are detailed above. Then 2 mL of 0.75 percent Marcaine and 2 mL of 4% lidocaine and 20 mg of triamcinolone was injected into the eric nt. Areas was cleaned of the prep and the patient was taken to the recovery room in stable condition. Bilateral KNEE INJECTION REFERRING PHYSICIAN: PREOPERATIVE DIAGNOSIS: 1.Daniel ateral knee arthropathy POSTOPERATIVE DIAGNOSIS: 1bilateral .knee arthropathy . 2.Findings: PROCEDURES PERFORM ED: [facility] NAME: SAM BAILEY [address] [facility] PHYS: DOCUD - Doctor,Aleksey Roth MD [place], [place] [address] : 1940 AGE: 79 SEX: F LOC: [facility] PHONE #: [phone] EXAM DATE: 01/06/2020 STATUS: REG SD FAX #: RAD #: D/C DT PAGE 1 Signed Report (CONTINUED) Patient Name: SAM CARRILLO Unit No: [id number] EXAMS: CPT CODE: [id number] XR FLUORO FOR SPINE INJ 89073 <Continued> 1.Fluoroscopic guided needle localization of bilateral knee joint. 2.Arthrogram of left knee joint and placement of local anesthetic and steroids in bilateral knee joint. FINDINGS: 1. Medial aspect of both joints was narrowed good spread ANTIBIOTIC:Cefazolin ESTIMATED BLOOD LOSS: Minimal ANESTHESIA:(TIVA) Total intravenous anesthetic (patient intolerant to sedatives and hypnotics) COMPLICATIONS:None DETAILS OF PROCEDURE: After obtaining stable vital signs, informed consent and IV access, with no known contr aindications to proceeding, the patient was taken to the fluoroscopy suite and placed in a supine position with all extremities padded and appropria te monitors placed. Using standard technique, and fluoroscopic guidance, a 27-gauge needle was advanced into the bilateral knee joint and 2 mL of I sovue-300 contrast was injected to produce an arthrogram. No paresthesias were noted with placement of the needle. The results of the arthrogram ar e detailed above. Then 2 mL of 0.75 percent Marcaine and 2 mL of 4% lidocaine and 20 mg of triamcinolone was injected into the joint. Areas was cleaned of the prep and the patient was taken to the recovery room in stable condition. at 181 Reported and willow d by: Aleksey Love M.D. CC: Technologist: Karmen Hewitt(R) Transcribed D/ (1811) [facility] [place] NAME: SAM BAILEY [address] [facility] PHYS: DOCUD - Doctor,Aleksey Roth MD [place], [place] [address] : 1940 AGE: 79 SEX: F LOC: [facility] PHONE #: EXAM DATE: 01/06/2020 STATUS: REG [facility] FAX #: RAD #: D/C DT PAGE 2 Signed Report Patient Name: Paola BAILEY Unit No: [id number] EXAMS: CPT CODE: [id number] XR FLUORO FOR SPINE INJ 46566 <Continued> Orig Print D/T: S: 01/06/2020 (1815) [facility] [place] NAME: SAM BAILEY [address] [facility] PHYS: DOCUD - Doctor,Aleksey Roth MD [place], [place] [address] : 1940 AGE: 79 SEX: F LOC: [facility] PHONE #: [phone] EXAM DATE: 01/06/2020 STATUS: REG [facility] FAX #: [phone] RAD #: D/C DT PAGE 3 Signed Report - XR FLUORO FOR SPINE [id number] 14:14:00 Patient Name: SAM BAILEY Unit No: [id number] EXAMS: CPT CODE: [id number] XR FLUORO FOR SPINE INJ 82422 LUMBAR TRANSFORAMINAL INJECTION REFERRING PHYSICIAN: PREOPERATIVE DIAGNOSIS: Degenerative Lumbar Disc Disease. POSTOPERATIVE DIAGNOSIS: Lumbar radiculopathy PROCEDURES PERFORMED 1. Fluoroscopically guided needle localization of the bilateral L4, bilateral L5 spinal nerve/nerves with transforaminal epidural steroid injection/injections. 2. Transforaminal epidurogram/epidurograms at bilateral L4, bilateral L5. FINDINGS: Poor filling bilateral L4, bilateral L5. Concordant provocation bilateral L5 hips. Pain relief-100%. Patient with severe loss of function and pain, left 2 patient ANTIBIOTIC: Cefazolin ESTIMATED BLOOD LOSS: Minimal ANESTHESIA: (TIVA )Total intravenous anesthetic (patient intolerant to sedatives and hypnotics) COMPLICATIONS: None DETAILS OF PROCEDURE: After obtaining stable vital signs, informed consent and IV access, with no known contraindications to proceeding, the patient was taken to the fluoro scopy suite and placed in a prone position with all extremities padded and appropriate monitors placed. A sterile prep and drape was performed over the lumbosacral spine. Using fluoroscopic visualization at each le queenie the insertion site was marked for a paravertebral approach to the fora men. Using standard technique, a 25 gauge needle was advanced to the base of the pedicle. In AP view, final positioning was obtained outside the 6 o n the clock position on the pedicle. Then, 1 ml of Isovue-300 contrast was injected to produce the epidurograms. No paresthesias were elicited with needle insertion or injection and there were no signs of intravascul ar or intrathecal uptake. Then, with 1 ml of 4% lidocaine and 10 mg of t riamcinolone was injected incrementally with frequent negative aspirations . There were no signs of intravascular or intrathecal uptake. Each subsequ ent level was done using the same technique and medications. The patient's vital signs remained stable. The patient was taken to the PACU in good co ndition. at 1414 Reported and signed by: Aleksey Love M.D. [facility] NAME: SAM BAILEY [address] [facility] PHYS: Aleksey Adhikari MD [place], [place] [address] : 1940 AGE: 79 SEX: F LOC: [facility] PHONE #: EXAM DATE: 12/15/2019 STATUS: REG [facility] FAX #: [phone] RAD #: D/C DT PAGE 1 Signed Report (CONTINUED) Patient Name: SAM BAILEY Unit No: [id number] EXAMS: CPT CODE: [id number] XR FLUORO FOR SPINE INJ 25821 <Continued> CC: Aleksey Love MD Technologist: INNA SALES RT(R) Transcribed D/ (1414) t.TONGR.UVD [facility] [place] NAME: BALDOMERO BAILEYLEIMITALI Jones [address] [facility] PHYS: Aleksey Adhikari MD [place], [place] [address] : 1940 AGE: 79 SEX: F LOC: [facility] PHONE #: [phone] EXAM DATE: 12/15/2019 STATUS: REG [facility] FAX #: [phone] RAD #: D/C DT PAGE 2 Signed Report Patient Name: SAM BAILEY Unit No: [id number] EXAMS: CPT CODE: [id number] XR FLUORO FOR SPINE INJ 31785 <Continued> Orig Print D/T: S: 12/15/2019 (1417) [facility] [place] NAME: SAM BAILEY [address] [facility] PHYS: CALLUM - DoctorAleksey MD [place], [place] [address] : 1940 AGE: 79 SEX: F LOC: [facility] PHONE #: [phone] EXAM DATE: 12/15/2019 STATUS: REG [facility] FAX #: [phone] RAD #: D/C DT PAGE 3 Signed Report BIOPSY LYMPH [id number] 12:26:00 [place] [address] Patient Name: SAM BAILEY MR #: [id number] : 1940 Age/Sex: 79/F Req #: [id number] Adm Physician: Ordered by: RO ESTRADA MD Report #: [id number] Location: Room/Bed: Procedure: IR/BIOPSY LYMPH NODE Exam Date: 12/09/19 Exam Gwyn e: 1125 REPORT STATUS: Signed IN OCEDURE: Ultrasound-guided biopsy Procedural Personnel Attending physicia n(s): eRnae Verma MD Fellow physician(s): None Resident physician(s): None Advanced practice provider(s): None Pre-procedure diagnosis: Left axillary mass Post-procedure diagnosis: Same Indication: Histopathologic diagnosis Previous biopsy of same target (QCDR): No Additional clinical history: None Complications: No immediate complications. IMPRESSION: Ultrasound- guided biopsy of left axillary driss mass. Plan: Specimen(s) sent for evaluation. PROCEDURE SUMMARY: - Percutaneous US-guided left axillary driss mass core and FNA biopsy - Additional procedure(s): None PROCEDURE DETAILS: Pr e-procedure Reference imaging for biopsy target: None Consent: Informed cons ent for the procedure including risks, benefits and alternatives was obtained and time-out was performed prior to the procedure. Preparation: The site was p repared and draped using maximal sterile barrier technique including cutaneous antisepsis. Anesthesia/sedation Level of anesthesia/sedation: No sedatio n Anesthesia/sedation administered by: Independent trained observer under at tending supervision with continuous monitoring of the patient?s level of consc iousness and physiologic status Total intra-service sedation time (minutes): N /A Imaging prior to biopsy The patient was positioned supine. Initial ult rasound was performed. Biopsy target: - Maximal diameter (cm): 3 - Locatio n: Left axilla Other findings: None Biopsy Local anesthesia was admini stered. Under US guidance, the biopsy needle was advanced to the target and bi opsy was performed. Coaxial needle: 17 gauge Core needle biopsy device: T EZ-Ticket Core needle size: 18 gauge Number of core specimens: 2 F ine needle aspiration device: Chiba Fine needle size: 22 gauge Number of FNA specimens: 2 On-site biopsy touch preparation: Yes Additional sampling recommendations: None Preliminary assessment of sample adequacy: Adequate Needle removal The biopsy needle was removed and a sterile dressing was appl ied. Tract embolization: None Imaging following biopsy Immediate post-b iopsy ultrasound was performed. Post-biopsy imaging findings: No hematoma Additional Details Additional description of procedure: None Equipment deta ils: None Specimens removed: Biopsy samples as detailed above Estimated bloo d loss (mL): Less than 10 Standardized report: [email or web address] Attestatio n Signer name: Renae Verma MD I attest that I was present for the entire pro cedure. I reviewed the stored images and agree with the report as written. Signed by: Renae Verma MD on 12/09/2019 12:27 PM Dictated By: RENAE VERMA MD 26 Transcribed By: Anni PETE on 12/09/191226 COPY TO: RO ESTRADA MD FNA US GUIDED 1ST [id number] 12:26:00 [place] [address] Patient Name: SAM BAILEY MR #: [id number] : 1940 Age/Sex: 79/F Req #: [id number] Adm Physician: Ordered by: RO ESTRADA MD Report #: [id number] Location: Room/Bed: Procedure: IR/FNA US GUIDED 1ST LESION Exam Date: 12/09/19 E xam Time: 112 REPORT STATUS: Willow d PROCEDURE: Ultrasound-guided biopsy Procedural Personnel Attending p ginny(s): Renae Verma MD Fellow physician(s): None Resident physician(s): None Advanced practice provider(s): None Pre-procedure diagnosis: Left a xillary mass Post-procedure diagnosis: Same Indication: Histopathologic diag nosis Previous biopsy of same target (QCDR): No Additional clinical history: None Complications: No immediate complications. IMPRESSION: Ultr asound-guided biopsy of left axillary driss mass. Plan: Specimen(s) s ent for evaluation. PROCEDURE SUMMARY: - Percutaneous US-guided left axillary driss mas s core and FNA biopsy - Additional procedure(s): None PROCEDURE DETAILS: Pre-procedure Reference imaging for biopsy target: None Consent: Inform ed consent for the procedure including risks, benefits and alternatives was ob tained and time-out was performed prior to the procedure. Preparation: The sit e was prepared and draped using maximal sterile barrier technique including cu taneous antisepsis. Anesthesia/sedation Level of anesthesia/sedation: No sedation Anesthesia/sedation administered by: Independent trained observer und er attending supervision with continuous monitoring of the patient?s level of consciousness and physiologic status Total intra-service sedation time (brandon jayne): N/A Imaging prior to biopsy The patient was positioned supine. Init ial ultrasound was performed. Biopsy target: - Maximal diameter (cm): 3 - Location: Left axilla Other findings: None Biopsy Local anesthesia was administered. Under US guidance, the biopsy needle was advanced to the target and biopsy was performed. Coaxial needle: 17 gauge Core needle biopsy de vice: Aleksno Evolution Core needle size: 18 gauge Number of core specimens: 2 Fine needle aspiration device: Chiba Fine needle size: 22 gauge Number of FNA specimens: 2 On-site biopsy touch preparation: Yes Additional s ampling recommendations: None Preliminary assessment of sample adequacy: Adequ ate Needle removal The biopsy needle was removed and a sterile dressing w as applied. Tract embolization: None Imaging following biopsy Immediate post-biopsy ultrasound was performed. Post-biopsy imaging findings: No hemato ma Additional Details Additional description of procedure: None Equipme nt details: None Specimens removed: Biopsy samples as detailed above Estimat ed blood loss (mL): Less than 10 Standardized report: [email or web address]_v3 Att estation Signer name: Renae Verma MD I attest that I was present for the ent alan procedure. I reviewed the stored images and agree with the report as writt en. Signed by: Renae Verma MD on 12/09/2019 12:27 PM Dictated By: RENUKA VERMA MD 9666 Transcribe d By: PORTIA on 12/09/19 3674 COPY TO: RO ESTRADA MD - CT L-SPINE W/O [id number] 14:29:00 Patient Name: SAM BAILEY Unit No: [id number] EXAMS: CPT CODE: [id number] CT L-SPINE W/O CONTRAST 48396 DIAGNOSIS: 1. At L1-2 there is no evidence for disc bulge or herniation, bony canal or foraminal stenosis. 2. At L2-3 there is no evidence for disc bulge or herniation, bony canal or foraminal stenosis. 3. At L3-4 there is a mild retrolisthesis and associated of 3 mm. Mild foraminal narrowing is seen and there is moderate narrowing of the central canal with facet and ligamentum flavum hypertrophic and degenerative change. 4. At L4-5 there is disc bulging lateralizing 4 mm into the foramina with mild bilateral foraminal narrowing. Moderate central canal stenosis is seen with facet and ligamentum flavum hypertrophic and degenerative change. 5. At L5-S1 there is 3 mm of disc bulging with calcification. Mild central canal stenosis is seen with facet and ligamentum flavum hypertrophic and degenerative change. No foraminal narrowing is identified. COMMENT: COMPARISON: No prior exams available. Scans were performed from L1 to S1 without contrast and reconstructions were obtained. Disc configurations are as described. Spondylitic change s are as noted. The description these findings assumes a normal count of 5 lumbar type vertebra. at 1429 * * Reported and signed by: Kris Silva MD CC: Aleksey Love MD Technologi st: Logan MontielRT(R) CTDI: DLP: Trnscrpt: 0 (9779) t.SDR.JCL [facility] NAME: SAM BAILEY [address] [facility] HYS: DOCUD - Aleksey Love MD : 0 1940 AGE: 79 SEX: F [place], [place] [address] ACCT NO: [id number] LOC: Y.RAD PHONE #: [phone] EXAM DATE: 11/22 STATUS: REG CLI FAX #: [phone] RAD #: D /C DT PAGE 1 Signed Report Patient Name: SAM BAILEY Unit No: [id number] EXAMS: CPT CODE: [id number] L-SPINE W/O CONTRAST 74675 < Continued> Orig Print D/T: S: 11/23/2019 (2632) [facility] NAME: SAM BAILEY [address] [facility] PHYS: DOCUD - DoctorAleksey MD : 1940 AGE: 79 SEX: F [place], [place] [address] LOC: AUGUSTO PHONE #: [phone] EXAM DATE: 11/23/2019 STATUS: REG CLI FAX #: [phone] RAD #: D/C DT PAGE 2 Signed Report - CT C-SPINE W/O [id number] 14:10:00 Patient Name: SAM BAILEY Unit No: [id number] EXAMS: CPT CODE: [id number] CT C-SPINE W/O CONT [id number] DIAGNOSIS: 1. At C1-2 there is no evidence for subluxation or canal stenosis. 2. At C2-3 there is no evidence for disc bulge or herniation, bony canal or foraminal stenosis. 3. At C3-4 there is a slight degenerative spondylolisthesis without a focal disc abnormality. Mild left foraminal narrowing is seen without right-sided stenosis. Asymmetric left facet degeneration is present. No canal stenosis is seen. 4. At C4-5 there is a mild degenerative spondylolisthesis without a focal disc abnormality. No canal or foraminal narrowing is seen. Bilateral facet degeneration is present. 5. At C5-6 there is a degenerative grade 1 spondylolisthesis with upwards disc protrusion. No cord impingement is seen. No canal or manuel inal narrowing is identified. 6. At C6-7 there is disc degeneration and m ild endplate spur formation with mild right and moderate left foraminal na rrowing. No canal stenosis is seen. Bilateral facet degeneration is pres ent. 7. At C7-T1 there is no evidence for disc bulge or herniation, bony canal or foraminal stenosis. Bilateral facet degeneration is present. COMMENT: COMPARISON: No prior exams available. Scans were performed from C1 to T1 without contrast and instructions were obtained. Spondylitic changes are as noted. Discs are as de scribed. at 1410 Reported and signed by: Kris Silva MD CC: Aleksey Love MD Technologist: Robert Vargas(R) CTDI: DLP: Trnscrpt: 11/23/2019 (1410) Charan [facility] NAME: BALDOMERO BAILEY [address] [facility] PHYS: Jason Adhikari MD : 1940 AGE: 79 SEX: F [place], [place] [address] LOC: Y.RAD PHONE #: [phone] EXAM DATE: 11/23/2019 STATUS: REG CLI FAX #: [phone] RAD #: D/C DT PAGE 1 Signed Report Rafaela ent Name: SAM BAILEY Unit No: [id number] EXAMS: CPT CODE: [id number] CT C-SPINE W /O CONT [id number] <Continued> Orig Print D/T: S: 11/23/2019 (6763) [facility] NAME: SAM BAILEY [address] [facility] PHYS: Aleksey Adhikari MD : 1940 AGE: 79 SEX: F [place] [address] LOC: Y.RAD PHONE #: [phone] EXAM DATE: 11/23/2019 STATUS: REG CLI FAX #: [phone] RAD #: D/C DT PAGE 2 Signed Report - XR TIBIA/FIBULA 2 V [id number] 12:37:00 Name: SAM ABILEY [facility] : 1940 Age/S:78 /F [address] [facility] Unit#:[id number] Loc: [place] [address] Phys: Dillan Aguilera TELEMEDICINE PHYSICIAN Dis Date: PHONE #: [phone] Status: REG ER FAX #: [phone] Exam Date: 04/14/2019 Reason: wound lower leg EXAMS: CPT CODE: [id number] XR TIBIA/F[place] [address] [place] [id number] HISTORY: Bone in the lower leg. COMPARISON: None available. AP and lateral view of the right leg: No acute fracture or dislocation. Surgical clips in the knee joint medially and posteriorly. The knee joint is mildly narrowed in all 3 compartments. No osteochondral lesion of the talus or the condyles. The ankle mortise is preserved. Soft tissue swelling along the medial malleolus as well as the medial knee joint. No erosive or destructive changes are noted. Small ankle joint fluid. No knee joint fluid. IMPRESSION: No acute fracture or dislocation. No erosive or destructive changes. Medial knee joint and medial malleolar soft tissue swelling. at 1237 Reported and signed by: Mumtaz Campbell M.D. CC: Ro Estrada M.D.; Dillan Aguilera TELEMEDICINE PHYSICIAN Technologist: Kirti Salas RT(R)(CT) Trnscrpt Data: 04/14/2019 (2817) t.[email or web address] Orig Print D/T: S: 04/14/2019 (0235) PAGE 1 Signed Report MM, DIGITAL, MAMMO, SCREENING, BILATERAL INCLUDING [id number] 11:16:00Diagnostic workup per radiologist?->YesReason for Exam:->Z12.31MRN#: [id number] - MM, DIGITAL, MAMMO, SCREENING, BILATERAL INCLUDING CAD BILATERAL DIGITAL SCREENING MAMMOGRAM WITH CAD: 04/14/2019CLINICAL: Routine scree giovany mammogram. Comparison is made to exams dated: 01/08/2018 mammogram, 017 mammogram, 10/10/2015 mammogram, 10/17/2014 mammogram, 09/08/2013 mammogram, a nd 09/02/2012 mammogram - [facility] . The tissue of both breasts is heterogeneously dense. This may lower the sensi tivity of mammography. Current study was also evaluated with a Computer Aided D etection (CAD) system. Benign appearing calcifications are present in both sahra sts. There is a post-surgical scar associated with both breasts. There is a bi opsy marker in the right breast. Tubing projects over and partially obscures th e left medial breast. A pacing device projects over and partially obscures the l eft axilla.No significant masses, calcifications, or other findings are seen in either breast. There has been no significant interval change. IMPRESSION: MAHSA NThere is no mammographic evidence of malignancy. A 1 year screening mammogram i s recommended. Agustín Dickson M.D. ds/:04/14/2019 11:16:40 Samantha l Exam Mammogram BI-RADS: 2 Benign G0202 /FREE T4 IF [id number] 16:26:00* Test Item Value Reference Range Interpretation Comments THYROID STIMULATING HORMONE (BEAKER) (test code = 772) 0.53 uIU/mL 0.35-4.94 B-TYPE NATRIURETIC FACTOR (BNP)2018-08-25 16:13:00* Test Item Value Reference Range Interpretation Comments B-TYPE NATRIURETIC PEPTIDE (BEAKER) (test code = 700) 745 pg/mL 0-100 H BASIC METABOLIC [id number] 16:05:00* Test Item Value Reference Range Interpretation Comments SODIUM (BEAKER) (test code = 381) 139 meq/L 136-145 POTASSIUM (BEAKER) (test code = 379) 4.8 meq/L 3.5-5.1 CHLORIDE (BEAKER) (test code = 382) 104 meq/L 98-107 CO2 (BEAKER) (test code = 355) 25 meq/L 22-29 BLOOD UREA NITROGEN (BEAKER) (test code = 354) 38 mg/dL 7-21 H CREATININE (BEAKER) (test code = 358) 1.34 mg/dL 0.57-1.25 H GLUCOSE RANDOM (BEAKER) (test code = 652) 93 mg/dL 70-105 CALCIUM (BEAKER) (test code = 697) 9.2 mg/dL 8.4-10.2 EGFR (BEAKER) (test code = 1092) 38 mL/min/1.73 sq m ESTIMATED GFR IS NOT ACCURATE CREATININE CLEARANCE IN PREDICTING GLOMERULAR FILTRATION RATE. ESTIMATED GFR IS NOT APPLICABLE FOR DIALYSIS PATIENTS. PROTHROMBIN TIME/[id number] 13:59:00* Test Item Value Reference Range Interpretation Comments PROTIME (BEAKER) (test code = 759) 50.4 seconds 11.7-14.7 H INR (BEAKER) (test code = 370) 5.6 <=5.9 RECOMMENDED COUMADIN/WARFARIN INR THERAPY RANGESSTANDARD DOSE: 2.0 - 3.0 Inclu rito: PROPHYLAXIS for venous thrombosis, systemic embolization; TREATMENT for usmna ous thrombosis and/or pulmonary embolus.HIGH RISK: Target INR is 2.5-3.5 for pat ients with mechanical heart valves.BASIC METABOLIC [id number] 06:30:00* Test Item Value Reference Range Interpretation Comments SODIUM (BEAKER) (test code = 381) 136 meq/L 136-145 POTASSIUM (BEAKER) (test code = 379) 4.2 meq/L 3.5-5.1 CHLORIDE (BEAKER) (test code = 382) 100 meq/L 98-107 CO2 (BEAKER) (test code = 355) 25 meq/L 22-29 BLOOD UREA NITROGEN (BEAKER) (test code = 354) 26 mg/dL 7-21 H CREATININE (BEAKER) (test code = 358) 1.17 mg/dL 0.57-1.25 GLUCOSE RANDOM (BEAKER) (test code = 652) 104 mg/dL 70-105 CALCIUM (BEAKER) (test code = 697) 8.5 mg/dL 8.4-10.2 EGFR (BEAKER) (test code = 1092) 45 mL/min/1.73 sq m ESTIMATED GFR IS NOT ACCURATE CREATININE CLEARANCE IN PREDICTING GLOMERULAR FILTRATION RATE. ESTIMATED GFR IS NOT APPLICABLE FOR DIALYSIS PATIENTS. CBC W/PLT COUNT & AUTO [id number] 05:23:00* Test Item Value Reference Range Interpretation Comments WHITE BLOOD CELL COUNT (BEAKER) (test code = 775) 8.2 K/ L 3.5- 10.5 RED BLOOD CELL COUNT (BEAKER) (test code = 761) 3.76 M/ L 3.93-5 .22 L HEMOGLOBIN (BEAKER) (test code = 410) 12.5 GM/DL 11.2-15.7 HEMATOCRIT (BEAKER) (test code = 411) 39.4 % 34.1-44.9 MEAN CORPUSCULAR VOLUME (BEAKER) (test code = 753) 104.8 fL 79. 4-94.8 H MEAN CORPUSCULAR HEMOGLOBIN (BEAKER) (test code = 751) 33.2 pg 25.6-32.2 H MEAN CORPUSCULAR HEMOGLOBIN CONC (BEAKER) (test code = 752) 31.7 GM/DL 32.2-35.5 L RED CELL DISTRIBUTION WIDTH (BEAKER) (test code = 412) 11.9 % 11.7-14.4 PLATELET COUNT (BEAKER) (test code = 756) 198 K/CU MM 150-450 MEAN PLATELET VOLUME (BEAKER) (test code = 754) 10.7 fL 9.4-12 .3 NUCLEATED RED BLOOD CELLS (BEAKER) (test code = 413) 0 /100 WBC 0 -0 NEUTROPHILS RELATIVE PERCENT (BEAKER) (test code = 429) 59 % LYMPHOCYTES RELATIVE PERCENT (BEAKER) (test code = 430) 22 % MONOCYTES RELATIVE PERCENT (BEAKER) (test code = 431) 12 % EOSINOPHILS RELATIVE PERCENT (BEAKER) (test code = 432) 5 % BASOPHILS RELATIVE PERCENT (BEAKER) (test code = 437) 1 % NEUTROPHILS ABSOLUTE COUNT (BEAKER) (test code = 670) 4.84 K/ L 1.56-6.13 LYMPHOCYTES ABSOLUTE COUNT (BEAKER) (test code = 414) 1.76 K/ L 1.18-3.74 MONOCYTES ABSOLUTE COUNT (BEAKER) (test code = 415) 1.00 K/ L 0. 24-0.36 H EOSINOPHILS ABSOLUTE COUNT (BEAKER) (test code = 416) 0.41 K/ L 0.04-0.36 H BASOPHILS ABSOLUTE COUNT (BEAKER) (test code = 417) 0.11 K/ L 0. 01-0.08 H IMMATURE GRANULOCYTES-RELATIVE PERCENT (BEAKER) (test code = 2801) 0 % 0-1 BASIC METABOLIC [id number] 06:11:00* Test Item Value Reference Range Interpretation Comments SODIUM (BEAKER) (test code = 381) 139 meq/L 136-145 POTASSIUM (BEAKER) (test code = 379) 4.7 meq/L 3.5-5.1 CHLORIDE (BEAKER) (test code = 382) 102 meq/L 98-107 CO2 (BEAKER) (test code = 355) 28 meq/L 22-29 BLOOD UREA NITROGEN (BEAKER) (test code = 354) 22 mg/dL 7-21 H CREATININE (BEAKER) (test code = 358) 1.26 mg/dL 0.57-1.25 H GLUCOSE RANDOM (BEAKER) (test code = 652) 109 mg/dL 70-105 H CALCIUM (BEAKER) (test code = 697) 9.1 mg/dL 8.4-10.2 EGFR (BEAKER) (test code = 1092) 41 mL/min/1.73 sq m ESTIMATED GFR IS NOT ACCURATE CREATININE CLEARANCE IN PREDICTING GLOMERULAR FILTRATION RATE. ESTIMATED GFR IS NOT APPLICABLE FOR DIALYSIS PATIENTS. PROTHROMBIN TIME/[id number] 06:03:00* Test Item Value Reference Range Interpretation Comments PROTIME (BEAKER) (test code = 759) 25.5 seconds 11.7-14.7 H INR (BEAKER) (test code = 370) 2.3 <=5.9 RECOMMENDED COUMADIN/WARFARIN INR THERAPY RANGESSTANDARD DOSE: 2.0 - 3.0 Inclu rito: PROPHYLAXIS for venous thrombosis, systemic embolization; TREATMENT for usman ous thrombosis and/or pulmonary embolus.HIGH RISK: Target INR is 2.5-3.5 for pat ients with mechanical heart valves.CBC W/PLT COUNT & AUTO [id number] 05:52:00* Test Item Value Reference Range Interpretation Comments WHITE BLOOD CELL COUNT (BEAKER) (test code = 775) 7.2 K/ L 3.5- 10.5 RED BLOOD CELL COUNT (BEAKER) (test code = 761) 3.70 M/ L 3.93-5 .22 L HEMOGLOBIN (BEAKER) (test code = 410) 12.4 GM/DL 11.2-15.7 HEMATOCRIT (BEAKER) (test code = 411) 39.2 % 34.1-44.9 MEAN CORPUSCULAR VOLUME (BEAKER) (test code = 753) 105.9 fL 79. 4-94.8 H MEAN CORPUSCULAR HEMOGLOBIN (BEAKER) (test code = 751) 33.5 pg 25.6-32.2 H MEAN CORPUSCULAR HEMOGLOBIN CONC (BEAKER) (test code = 752) 31.6 GM/DL 32.2-35.5 L RED CELL DISTRIBUTION WIDTH (BEAKER) (test code = 412) 12.0 % 11.7-14.4 PLATELET COUNT (BEAKER) (test code = 756) 177 K/CU MM 150-450 MEAN PLATELET VOLUME (BEAKER) (test code = 754) 10.3 fL 9.4-12 .3 NUCLEATED RED BLOOD CELLS (BEAKER) (test code = 413) 0 /100 WBC 0 -0 NEUTROPHILS RELATIVE PERCENT (BEAKER) (test code = 429) 65 % LYMPHOCYTES RELATIVE PERCENT (BEAKER) (test code = 430) 16 % MONOCYTES RELATIVE PERCENT (BEAKER) (test code = 431) 13 % EOSINOPHILS RELATIVE PERCENT (BEAKER) (test code = 432) 4 % BASOPHILS RELATIVE PERCENT (BEAKER) (test code = 437) 1 % NEUTROPHILS ABSOLUTE COUNT (BEAKER) (test code = 670) 4.66 K/ L 1.56-6.13 LYMPHOCYTES ABSOLUTE COUNT (BEAKER) (test code = 414) 1.13 K/ L 1.18-3.74 L MONOCYTES ABSOLUTE COUNT (BEAKER) (test code = 415) 0.93 K/ L 0. 24-0.36 H EOSINOPHILS ABSOLUTE COUNT (BEAKER) (test code = 416) 0.31 K/ L 0.04-0.36 BASOPHILS ABSOLUTE COUNT (BEAKER) (test code = 417) 0.10 K/ L 0. 01-0.08 H IMMATURE GRANULOCYTES-RELATIVE PERCENT (BEAKER) (test code = 2801) 1 % 0-1 RAD, CHEST, 2 [id number] 22:04:00Reason for exam:->chfFINAL REPORT Technique: 2 views of the chest COMPARISON: 10/21/2017 FINDINGS: There is biapical scarring. Scattered curvilinear densities may represent subsegmental atelectasis. Otherwise lungs are clear. Cardiac silhouette is enlarged. Left-sided pacing device noted. Surgical clips over the right apex noted. Catheter projects over the left chest presumably DROP HAMMER PILE DRIVER OPERATOR shunt. Signed: Shayan Valdovinos MDReport Verified Date/Time: 08/05/2018 22:04:37 Reading Location: [facility] Reading Room Electronically signed by: SHAYAN VALDOVINOS M.D. on 10:04 PM [id number] 15:27:00* Test Item Value Reference Range Interpretation Comments THYROID STIMULATING HORMONE (BEAKER) (test code = 772) 0.01 uIU/mL 0.35-4.94 L B-TYPE NATRIURETIC FACTOR (BNP)2018-08-05 15:11:00* Test Item Value Reference Range Interpretation Comments B-TYPE NATRIURETIC PEPTIDE (BEAKER) (test code = 700) 385 pg/mL 0-100 H BASIC METABOLIC [id number] 15:10:00* Test Item Value Reference Range Interpretation Comments SODIUM (BEAKER) (test code = 381) 137 meq/L 136-145 POTASSIUM (BEAKER) (test code = 379) 4.4 meq/L 3.5-5.1 CHLORIDE (BEAKER) (test code = 382) 99 meq/L 98-107 CO2 (BEAKER) (test code = 355) 31 meq/L 22-29 H BLOOD UREA NITROGEN (BEAKER) (test code = 354) 18 mg/dL 7-21 CREATININE (BEAKER) (test code = 358) 1.03 mg/dL 0.57-1.25 GLUCOSE RANDOM (BEAKER) (test code = 652) 94 mg/dL 70-105 CALCIUM (BEAKER) (test code = 697) 9.4 mg/dL 8.4-10.2 EGFR (BEAKER) (test code = 1092) 52 mL/min/1.73 sq m ESTIMATED GFR IS NOT ACCURATE CREATININE CLEARANCE IN PREDICTING GLOMERULAR FILTRATION RATE. ESTIMATED GFR IS NOT APPLICABLE FOR DIALYSIS PATIENTS. CBC WITH PLATELET COUNT + MANUAL [id number] 15:08:00* Test Item Value Reference Range Interpretation Comments WHITE BLOOD CELL COUNT (BEAKER) (test code = 775) 6.4 K/ L 3.5- 10.5 RED BLOOD CELL COUNT (BEAKER) (test code = 761) 3.80 M/ L 3.93-5 .22 L HEMOGLOBIN (BEAKER) (test code = 410) 12.6 GM/DL 11.2-15.7 HEMATOCRIT (BEAKER) (test code = 411) 39.7 % 34.1-44.9 MEAN CORPUSCULAR VOLUME (BEAKER) (test code = 753) 104.5 fL 79. 4-94.8 H MEAN CORPUSCULAR HEMOGLOBIN (BEAKER) (test code = 751) 33.2 pg 25.6-32.2 H MEAN CORPUSCULAR HEMOGLOBIN CONC (BEAKER) (test code = 752) 31.7 GM/DL 32.2-35.5 L RED CELL DISTRIBUTION WIDTH (BEAKER) (test code = 412) 12.0 % 11.7-14.4 PLATELET COUNT (BEAKER) (test code = 756) 182 K/CU MM 150-450 MEAN PLATELET VOLUME (BEAKER) (test code = 754) 10.3 fL 9.4-12 .3 NUCLEATED RED BLOOD CELLS (BEAKER) (test code = 413) 0 /100 WBC 0 -0 NEUTROPHILS RELATIVE PERCENT (BEAKER) (test code = 429) 66 % This is an appended report. These results have been appended to a previously final verified report. LYMPHOCYTES RELATIVE PERCENT (BEAKER) (test code = 430) 20 % This is an appended report. These results have been appended to a previously final verified report. MONOCYTES RELATIVE PERCENT (BEAKER) (test code = 431) 9 % This is an appended report. These results have been appended to a previously final verified report. EOSINOPHILS RELATIVE PERCENT (BEAKER) (test code = 432) 3 % This is an appended report. These results have been appended to a previously final verified report. BASOPHILS RELATIVE PERCENT (BEAKER) (test code = 437) 1 % This is an appended report. These results have been appended to a previously final verified report. NEUTROPHILS ABSOLUTE COUNT (BEAKER) (test code = 670) 4.19 K/ L 1.56-6.13 This is an appended report. These results have been appended to a previously final verified report. LYMPHOCYTES ABSOLUTE COUNT (BEAKER) (test code = 414) 1.28 K/ L 1.18-3.74 This is an appended report. These results have been appended to a previously final verified report. MONOCYTES ABSOLUTE COUNT (BEAKER) (test code = 415) 0.60 K/ L 0. 24-0.36 H This is an appended report. These results have been appended to a previously final verified report. EOSINOPHILS ABSOLUTE COUNT (BEAKER) (test code = 416) 0.19 K/ L 0.04-0.36 This is an appended report. These results have been appended to a previously final verified report. BASOPHILS ABSOLUTE COUNT (BEAKER) (test code = 417) 0.08 K/ L 0. 01-0.08 This is an appended report. These results have been appended to a previously final verified report. IMMATURE GRANULOCYTES-RELATIVE PERCENT (BEAKER) (test code = 2801) 0 % 0-1 This is an appended report. These results have been appended to a previously final verified report. PROTHROMBIN TIME/[id number] 14:55:00* Test Item Value Reference Range Interpretation Comments PROTIME (NOELLE) (test code = 759) 24.7 seconds 11.7-14.7 H INR (NOELLE) (test code = 370) 2.2 <=5.9 RECOMMENDED COUMADIN/WARFARIN INR THERAPY RANGESSTANDARD DOSE: 2.0 - 3.0 Inclu rito: PROPHYLAXIS for venous thrombosis, systemic embolization; TREATMENT for usman ous thrombosis and/or pulmonary embolus.HIGH RISK: Target INR is 2.5-3.5 for pat ients with mechanical heart valves.[U] XR KNEE 3 VWS [id number] 11:36:00Images acquired, not reported on this accession number.[facility] PhysiciansMM, DIGITAL, MAMMO, SCREENING, BILATERAL INCLUDING [id number] 14:17:00Reason for Exam:->screeningMRN#: [id number] - MM, DIGITAL, MAMMO, SCREENING, BILATERAL INCLUDING CADBILATERAL DIGITAL SCREENING MAMMOGRAM WITH CAD: 01/08/2018Comparison is made to exams dated: 10/29/2016 mammogram and 10/10/2015 mammogram - [facility]. The tissue of both breasts is heterogeneously dense. This may lower the sensitivity of mammography. Current study was also evaluated with a Computer Aided Detection (CAD) system. Benign appearing calcifications are present in both breasts. There is a post-surgical scar associated with both breasts. Examination indicates a biopsy marker in the right breast. No significant masses, calcifications, or other findings are seen in either breast. IMPRESSION: BENIGNThere is no mammographic evidence of malignancy. A 1 year screening mammogram is recommended. Atul Hawley M.D. pth/penrad: 14:17:14 Normal Exam Mammogram BI-RADS: 2 Benign G0202 Elect ronically signed by: ATUL HAWLEY M.D. on 01/08/2018 02:[address], CHEST, WITHOUT [id number] 17:34:00FINAL REPORT Chest CT without intravenous contrast INDICATION: r06.02 COMPARISON: 04/22/2013 TECHNIQUE: Multiple contiguous transaxial images of the chest were obtained without intravenous contrast. This exam was performed according to our departmental dose optimization program which includes automated exposure control, adjustment of the mA and/or kV according to patient size and/or use of iterative reconstructive technique. FINDINGS: Lack of intravenous contrast limits evaluation of the parenchymal and vascular organs. There is no pneumothorax or pulmonary edema. There is a small left pleural effusion. There is scattered atelectasis and scarring bilaterally. There is mild atelectasis and volume loss in the right middle lobe and lingula with bronchiectasis, slightly progressed from before. Mild tree-in-bud opacities are seen in the right middle and lower lobes as well as right upper lobe and lingula, suggestive of nonspecific bronchiolitis of infectious or inflammatory etiology including DANELLE, new since p rior examination. Again seen is scarring and nodularity in the lung apices witho ut significant change. The major airways are clear. The visualized portion of th e thyroid gland appear unremarkable. There is no hilar, mediastinal or axillary lymphadenopathy. There is no pericardial effusion. Atherosclerotic vascular calc ifications are seen. There is partial visualization of a left-sided DROP HAMMER PILE DRIVER OPERATOR shunt. Le ft-sided pacemaker is in position as before. The heart size is enlarged. Limited visualization of the upper abdominal structures appear unremarkable. The osseou s structures demonstrate mild degenerative change. Several subacute appearing ri ght fractures are noted. IMPRESSION:1. Mild tree-in-bud opacities, new since oscar or, suggestive of nonspecific bronchiolitis as above. Slight worsening bronchiec tasis of the right middle lobe and lingula.2. No significant change in scattered scarring and atelectasis bilaterally as well as proximal nodularity in the lung apices.3. Cardiomegaly.4. Small left pleural effusion. Signed: Nikita Russo MDRep ort Verified Date/Time: 12/22/2017 17:34:38 Reading Location: [facility] B1 [id number] [facility] Consult Reading Room Electronically signed by: NIKITA RUSSO M.D. on 10/2017 05:34 PM RAD, CHEST, 1 VIEW, NON [id number] 08:19:00Reason for exam:- >pmShould this be performed at the bedside?->YesFINAL REPORT Chest one view INDICATION: Pacemaker COMPARISON: 10/20/2017 IMPRESSION: A left chest pacemaker is in place with stable leads and overlying skin vicky. No pneumothorax is seen. Left-sided ventriculostomy catheter tubing and right chest surgical clips are noted. The cardiomediastinal contours are stable. Pulmonary vascular congestion and interstitial edema have regressed. Left greater than right basilar opacities are similar and may reflect atelectasis or scarring. Pneumonitis should be excluded clinically. Left costophrenic angle is obscured. Signed: Christiano Ellis MDReport Verified Date/Time: 10/21/2017 08:19:03 Reading Location: [facility] Radiology Reading Room TROLYTES 2017-10-21 06:21:00* Test Item Value Reference Range Interpretation Comments SODIUM (BEAKER) (test code = 381) 138 meq/L 136-145 POTASSIUM (BEAKER) (test code = 379) 4.5 meq/L 3.5-5.1 Specimen slightly hemolyzed CHLORIDE (BEAKER) (test code = 382) 104 meq/L 98-107 CO2 (BEAKER) (test code = 355) 23 meq/L 22-29 [id number] 06:21:00* Test Item Value Reference Range Interpretation Comments GLUCOSE RANDOM (BEAKER) (test code = 652) 90 mg/dL 70-105 BUN AND [id number] 06:21:00* Test Item Value Reference Range Interpretation Comments BLOOD UREA NITROGEN (BEAKER) (test code = 354) 19 mg/dL 7-21 CREATININE (BEAKER) (test code = 358) 0.81 mg/dL 0.57-1.25 Specimen slightly hemolyzed EGFR (BEAKER) (test code = 1092) 69 mL/min/1.73 sq m ESTIMATED GFR IS NOT ACCURATE CREATININE CLEARANCE IN PREDICTING GLOMERULAR FILTRATION RATE. ESTIMATED GFR IS NOT APPLICABLE FOR DIALYSIS PATIENTS. PROTHROMBIN TIME/[id number] 05:51:00* Test Item Value Reference Range Interpretation Comments PROTIME (BEAKER) (test code = 759) 16.7 seconds 11.7-14.7 H INR (BEAKER) (test code = 370) 1.4 <=5.9 RECOMMENDED COUMADIN/WARFARIN INR THERAPY RANGESSTANDARD DOSE: 2.0 - 3.0 Inclu rito: PROPHYLAXIS for venous thrombosis, systemic embolization; TREATMENT for usman ous thrombosis and/or pulmonary embolus.HIGH RISK: Target INR is 2.5-3.5 for pat ients with mechanical heart valves.CBC (HEMOGRAM ONLY)2017-10-21 05:38:00* Test Item Value Reference Range Interpretation Comments WHITE BLOOD CELL COUNT (BEAKER) (test code = 775) 8.4 K/ L 3.5- 10.5 RED BLOOD CELL COUNT (BEAKER) (test code = 761) 4.06 M/ L 3.93-5 .22 HEMOGLOBIN (BEAKER) (test code = 410) 13.1 GM/DL 11.2-15.7 HEMATOCRIT (BEAKER) (test code = 411) 40.8 % 34.1-44.9 MEAN CORPUSCULAR VOLUME (BEAKER) (test code = 753) 100.5 fL 79. 4-94.8 H MEAN CORPUSCULAR HEMOGLOBIN (BEAKER) (test code = 751) 32.3 pg 25.6-32.2 H MEAN CORPUSCULAR HEMOGLOBIN CONC (BEAKER) (test code = 752) 32.1 GM/DL 32.2-35.5 L RED CELL DISTRIBUTION WIDTH (BEAKER) (test code = 412) 13.2 % 11.7-14.4 PLATELET COUNT (BEAKER) (test code = 756) 175 K/CU MM 150-450 MEAN PLATELET VOLUME (BEAKER) (test code = 754) 10.8 fL 9.4-12 .3 NUCLEATED RED BLOOD CELLS (BEAKER) (test code = 413) 0 /100 WBC 0 -0 RAD, CHEST, 1 VIEW, NON [id number] 12:34:00Reason for exam:->pmShould this be performed at the bedside?->YesFINAL REPORT Chest one view INDICATION: Pacemaker COMPARISON: 04/19/2013 IMPRESSION: A left chest pacemaker is present with leads in the right atrium and right ventricle. There are chest wall skin vicky. No pneumothorax is seen. Left sided ventriculostomy catheter tubing and right chest surgical clips are present. The cardiomediastinal contours are stable. There are increased interstitial markings suggesting vascular congestion and mild edema. Bibasilar atelectasis or scarring is present. The bones appear grossly intact. Signed: Christiano Ellis MDReport Verified Date/Time: 10/20/2017 12:34:14 Reading Location: [facility] C0[facility] Consult Reading Room DXA DUAL ENERGY [facility] [address] [place] [address] Patient Name: SAM BAILEY MR #: [id number] : 1940 Age/Sex: 77/F Req #: [id number] Adm Physician: Ordered by: CHINO ESPINOZA M.D. Report #: [id number] Location: [facility] Room/Bed: Procedure: [id number] DX/BONE DXA DUAL ENER GY Exam Date: Exam Time: REPORT STATUS: Sign ed EXAM: DXA BONE DENSITY INDICATIONS: OSTEOPOROSIS COMPARISON: None. FINDINGS: Proximal left femur total bone mineral density (BMD) (g/cm2): 0.729 Femur T-score (standard deviation relative to young adult mean BMD): -1.7 Femur Z-score (standard deviation relative to age-matched control group): 0.2 Proximal left femur neck bone mineral density (BMD) (g/cm2) : 0.646 Femur T-score (standard deviation relative to young adult mean BMD): -1.8 Femur Z-score (standard deviation relative to age-matched control group): 0.4 Lumbar bone mineral density (BMD) (g/cm2): 0.902 Lumba r T-score (standard deviation relative to young adult mean BMD): -1.3 Lum bar Z-score (standard deviation relative to age-matched control group): 1.2 Change since prior exam (%): Femur: Not applicable. Spine: Not applicable. Change since oldest prior exam (%): Femur: Not applicable. Spine: Not applicable. CONCLUSION: 1. Bone mineral density in the left femur is classified as osteopenia. Fracture risk is increased. 2. Bone min eral density in the spine is classified as osteopenia. Fracture risk is incre ased. World Health Organization Classification: *The Z-score is provi ded for informational purposes. The T-score is preferable for clinical decisi ons. When comparing exams, a change of >4% is considered statistically significant. SUGGESTED RECOMMENDATIONS: Normal T Osteopenia: Consideration should be given to use of calcium supplementation, daily multiple vitamins and adequate exercise, as preventive measures against osteoporosis, if clinically indicated. Osteoporosis T Severe Osteoporosis: In addition to the above, consideration should be given to medical therapy against osteoporosis, if clinically indicated. Brandon Gallo M.D. Dictated by: Brandon Gallo M.D. on 01/09/2018 at 16:43 Electronically approved by: Brandon Gallo M.D. on 01/09/2018 at 1 6:43 Dictated By: BRANDON GALLO MD [id number] Transcribed By: DESEAN on 01/09/18 1643 C OPY TO: CHINO ESPINOZA M.D.
--- OUTSIDE RECORDS SUMMARY | 2020-05-01 23:18 | XMS REPORT | Summary of Care ---
Author Author SAM MASCORRO M.D. Organization Unknown Address [facility] Phone Unavailable Care Team Providers Care Insulation Cupola Charger Name Role Phone ANGELA MASCORRO M.D. Unavailable Unavailable SUBHA HERNANDEZ MD [place], ANGELA RUDD Unavailable Unavail able DANE SANCHEZ, MERCEDES WHITE Unavailable Unavailable Unavailable Unavailable Functional Status Name Dates Details Functional status health issues are not documented Status: Name Dates Details Cognitive status health issues are not d ocumented Status: Problems Name Dates Details Hip pain, bilateral (719.45, M25.551) Status: Active Bilateral primary osteoarthritis of knee (715.16, M17.0) Status: Active Greater trochanteric bursitis of right h ip (726.5, M70.61) Status: Active Greater trochanteric bursitis of left hi p (726.5, M70.62) Status: Active Medications Name Dates Details tiZANidine HCl - 4 MG Oral Tablet TAKE ONE TABLET BY MOUTH EVERY NIGHT AT BEDTIME Quantity: 30 ANGELA MASCORRO M.D. * Start : 24-Nov-2018 Active Diclofenac Sodium 1 % Transdermal Gel APPLY TO LOWER EXTREMITY 4 GM OF GEL TO AFFECTED AREA 2 TIMES DAILY * Quantity: 1 Refills: 4 ANGELA MASCORRO M.D. * Start : 05-Oct-2019 Active 100 GM Tube Allergies and Adverse Reactions Name Dates Details No Known Drug Allergies (Allergy) Status : Active Procedures Procedure Dates Details XRAY Hip bilateral w pelvis and both lat hips 33537 Date: Immunization Name Dates Details Immunizations not documented Social History Name Dates Details Unknown if ever smoked Vital Signs Date Test Result Details No Known Vitals to report Results Date Description Value Details Results not documented Plan of Care Name Dates Details Planned Observations Planned Goals not documented Planned Encounters Appointment; DAVIS VELA NP On: 12-Oct-2019 10:30 Interventions Provided Medication Changes* Diclofenac Sodium 1 % Transdermal Gel - Start Labs/Procedures/Imaging* XRAY Hip bilateral w pelvis and both lat hips 43724; To Be Done: 05 Oct 2019 Plan* Completed at Today's Appointment: * Injection * Patient Education/Instructions: * Patient education and reassurance was provided for better understanding of the diagnosis and treatment plan. An opportunity to ask questions was provided. * Instructions to keep site iced and elevated were explained in detail. Instructions to contact the office or emergency room for worsening pain, swelling, and/or any concerns were provided. Understanding was acknowledged. * Instruction to rest and refrain from vigorous or strenuous activity was given. Understanding was acknowledged. * Significant time was spent educating and counseling the patient. * Orders: * Pt will try topical NSAID for bilateral grt troch bursitis. If symptoms persist, local cortisone injections may be necessary. RTC next week for final Euflexxa injections * Follow Up: * Return to the clinic in 1 week or as needed. Instructions Name Dates Details Instructions not documented Encounters Appointment; ANGELA MASCORRO M.D. Encounter Diagnosis: Problem not documented On: 17-Apr-2018 11:00 Appointment; ANGELA MASCORRO M.D. Encounter Diagnosis: Problem not documented On: 04-Jun-2018 13:15 Appointment; ANGELA MASCORRO M.D. Encounter Diagnosis: Problem not documented On: 11-Jun-2018 11:00 Appointment; ANGELA MASCORRO M.D. Encounter Diagnosis: Problem not documented On: 18-Jun-2018 11:00 Appointment; ANGELA MASCORRO M.D. Encounter Diagnosis: Problem not documented On: 08-Oct-2018 15:00 Appointment; ANGELA MASCORRO M.D. Encounter Diagnosis: Problem not documented On: 22-Oct-2018 11:00 Appointment; ANGELA MASCORRO M.D. Encounter Diagnosis: Problem not documented On: 24-Nov-2018 13:30 Appointment; ANGELA MASCORRO M.D. Encounter Diagnosis: Problem not documented On: 09-Mar-2019 10:45 Appointment; ANGELA MASCORRO M.D. Encounter Diagnosis: Problem not documented On: 29-Jun-2019 10:45 Appointment; DAVIS VELA NP Encounter Diagnosis: Problem not documented On: 28-Sep-2019 13:30 Appointment; ANGELA MASCORRO M.D. Encounter Diagnosis: Problem not documented On: 05-Oct-2019 11:00
--- OUTSIDE RECORDS SUMMARY | 2020-05-01 23:18 | XMS REPORT | Clinical Summary ---
Author Author [facility] Address Unknown Phone Unavailable Care Team Providers Care Head Of Biology Name Role Phone Felix Jones MD PCP Kolton Staley 31 Unavailable Allergies Comments Active Allergy Reactions Severity Noted Date Makes her crazy Acetazolamide 02/24/2013 Codeine Itching, Medium 02/22/2013 Dermatitis Makes her crazy Methazolamide 02/24/2013 States skin comes off with tape when removed. Tape Adherent Dermatitis Low 02/22/2013 Medications End Date Status Medication Sig Dispensed Refills Start Date Active cyanocobalamin (VITAMIN Inject 1,000 0 B-12) 1,000 mcg/mL mcg injection intramuscular ly every 14 (fourteen) days . Active ALPRAZolam (XANAX) 2 MG Take 2 mg by 0 tablet mouth every night as needed. Active thyroid, pork, 65 mg Tab Take 32.5 mg 0 by mouth daily Takes 130 mg in am , and 65 mg at noon. Active pantoprazole (PROTONIX) Take 40 mg by 0 40 MG tablet mouth daily. Active HYDROcodone-acetaminophen Take 1 tablet 0 (NORCO 10-325) 10-325 mg by mouth per tablet every 6 (six) hours as needed for Pain. Active diazePAM (VALIUM) 5 MG Take 5 mg by 0 tablet mouth every 6 (six) hours as needed for Anxiety. Active metoprolol (TOPROL-XL) 25 Take 25 mg by 0 MG 24 hr tablet mouth daily . Active furosemide (LASIX) 20 MG Take 20 mg by 0 tablet mouth daily. Active apixaban (ELIQUIS) 5 mg Take 5 mg by 0 Tab tablet mouth 2 (two) times daily. Active amiodarone (PACERONE) 200 Take 200 mg 0 MG tablet by mouth daily. Active spironolactone Take 25 mg by 0 (ALDACTONE) 25 MG tablet mouth daily. 03/01/2020 Discontinued warfarin (COUMADIN) 2 MG Take 3 mg by 0 tablet mouth daily sliding scale per INR. 03/03/2020 Discontinued eluxadoline (VIBERZI) 100 Take by mouth 0 mg Tab 2 (two) times daily. 03/01/2020 Discontinued losartan (COZAAR) 25 MG Take 25 mg by 0 tablet mouth daily. 08/07/2019 amiodarone (PACERONE) 200 Take 1 tablet 0 07/23 MG tablet (200 mg 8 total) by mouth 2 (two) times daily. 08/08/2019 spironolactone Take 1 tablet 0 (ALDACTONE) 25 MG tablet (25 mg total) 8 by mouth daily. 03/11/2020 ondansetron (ZOFRAN-ODT) Take 2 20 tablet 0 0 4 MG disintegrating tablets (8 mg 0 tablet total) by mouth every 8 (eight) hours as needed for up to 7 days. Active Problems Problem Noted Date Sepsis 03/01/2020 CHF (congestive heart failure), NYHA class III 08/05 PAF (paroxysmal atrial fibrillation) 10/20/2017 Tachy-kia syndrome 10/20/2017 SSS (sick sinus syndrome) 10/20/2017 Fever 04/19/2013 Pneumonia 02/28/2013 Hydrocephalus, communicating 02/24/2013 Encounters Care Team Description Date Type Specialty Jil Paredes MD 05/01/2020 Hospital Encounter 03/02/2020 Travel [place] MD Karasek, Konrad, MD Joudah, Fady Ahmad, MD Leukocytosis, unspecified type (Primary Dx) 03/01/2020 Hospital Cardiology - Encounter 03/04/2020 after 05/01/2019 Family History Medical History Relation Name Comments Cancer Father Cancer Mother Relation Name Status Comments Father Mother Social History Date Tobacco Use Types Packs/Day Years Used Never Smoker Smokeless Tobacco: Never Used Alcohol Use Drinks/Week oz/Week Comments Yes 4 Glasses of 2.4 over a week spa n wine Sex Assigned at Date Recorded Not on file Industry Job Start Date Occupation Not on file Not on file Not on file Travel End Travel History Travel Start No recent travel history available. Last Filed Vital Signs Time Taken Vital Sign Reading 03/04/2020 10:58 AM CDT Blood Pressure 158/71 03/04/2020 10:58 AM CDT Pulse 60 03/04/2020 10:58 AM CDT Temperature 37.2 C (98.9 F) 03/04/2020 10:58 AM CDT Respiratory Rate 20 03/04/2020 10:58 AM CDT Oxygen Saturation 96% - Inhaled Oxygen - Concentration 03/01/2020 11:15 PM CDT Weight 58.2 kg (128 lb 4.8 oz) 03/01/2020 11:57 AM CDT Height 165.1 cm (5' 5") 03/01/2020 11:15 PM CDT Body Mass Index 21.35 Plan of Treatment Not on file Implants Device Identifier Shelf Expiration Date Model / Serial / L ot Implanted Type Area Manufactur er 10/22/2017 [id number] / [id number] / Env Absrb Antibact Tyrx Med - Cardiovasc N/A: Chest [employer]: [id number] ular CARD Implanted: Qty: 1 on 10/20/2017 by RHY:Brandon Nesbitt MD E MGT [id number] 05/19/[address] / / [id number] Hemstas Mph Absorb Hemo 3gr Cement/Ronan N/A: Chest M EDAFOR [address] - [id number] ler/Adhesi HEMOSTATIC Implanted: Qty: 1 on 10/20/2017 by ve Brandon Garvey MD NETO 12/19/2017 [id number] / / [id number] Cath,Ventricular Standard/Small Neuro Left: Cranium [employer] 23cm - [id number] NEUROMODUL Implanted: Qty: 1 on 02/24/2013 by Shon Yoder MD 11/19/2017 [id number] / / [id number] Cath,Peritoneal Std Open W/Wall Neuro Left: Cranium [employer] Slits Barium 120cm - [id number] NEUROMODUL Implanted: Qty: 1 on 02/24/2013 by Shon Yoder MD 04/20/2013 [id number] / / Valve,Delta Bur Hole Level 1 12mm - Neuro Left: Cran ium [employer] [id number] NEUROMODUL Implanted: Qty: 1 on 02/24/2013 by Sohn Yoder MD 07/31/2019 5076-52 / [id number] / Lead Pacemkr Capsur Novus 52cm Pacemaker N/A: Heart [employer]: 5076-52 - [id number] Lead CARD Implanted: Qty: 1 on 10/20/2017 by RHY:Brandon Nesbitt MD E MGT 07/25/2019 5076-45 / [id number] / Lead Pacemkr Capsur Novus 45cm Pacemaker N/A: Heart [employer]: 5076-45 - [id number] Lead CARD Implanted: Qty: 1 on 10/20/2017 by RHY:Brandon Nesbitt MD E MGT 01/17/2019 [id number] / [id number] / Pacemaker Ipg Advisa [id number] - Pacemakers N/A: Chest [employer]: [id number] CARD Implanted: Qty: 1 on 10/20/2017 by JAYY:Brandon Nesbitt MD E MGT Procedures Comments Procedure Name Priority Date/Time Associated Diag nosis RHYTHM STRIP - SCAN 03/07/2020 9:10 AM CDT (CELLAVISION MANUAL DIFF) Routine 03/04/2020 4:54 AM CDT CBC W/PLT COUNT & AUTO Routine 03/04/2020 DIFFERENTIAL 4:54 AM CDT CBC W/PLT COUNT & AUTO Routine 03/04/2020 DIFFERENTIAL 4:54 AM CDT PHOSPHORUS Routine 03/04/2020 4:54 AM CDT MAGNESIUM Routine 03/04/2020 4:54 AM CDT PROTHROMBIN TIME/INR Routine 03/04/2020 4:54 AM CDT BASIC METABOLIC PANEL (7) Routine 03/04/2020 4:54 AM CDT (CELLAVISION MANUAL DIFF) Routine 03/03/2020 9:14 AM CDT CBC W/PLT COUNT & AUTO Routine 03/03/2020 DIFFERENTIAL 9:14 AM CDT CBC W/PLT COUNT & AUTO Routine 03/03/2020 DIFFERENTIAL 9:14 AM CDT PHOSPHORUS Routine 03/03/2020 4:43 AM CDT MAGNESIUM Routine 03/03/2020 4:43 AM CDT PROTHROMBIN TIME/INR Routine 03/03/2020 4:43 AM CDT BASIC METABOLIC PANEL (7) Routine 03/03/2020 4:43 AM CDT (CELLAVISION MANUAL DIFF) Routine 03/02/2020 3:28 AM CDT CBC W/PLT COUNT & AUTO Routine 03/02/2020 DIFFERENTIAL 3:28 AM CDT CBC W/PLT COUNT & AUTO Routine 03/02/2020 DIFFERENTIAL 3:28 AM CDT PHOSPHORUS Routine 03/02/2020 3:28 AM CDT MAGNESIUM Routine 03/02/2020 3:28 AM CDT PROTHROMBIN TIME/INR Routine 03/02/2020 3:28 AM CDT BASIC METABOLIC PANEL (7) Routine 03/02/2020 3:28 AM CDT CREATINE KINASE (CK) Routine 03/02/2020 3:28 AM CDT PROTHROMBIN TIME/INR Routine 03/01/2020 3:58 PM CDT B-TYPE NATRIURETIC FACTOR Routine 03/01/2020 (BNP) 3:58 PM CDT URINALYSIS W/ MICROSCOPIC STAT 03/01/2020 2:02 PM CDT XR CHEST PA OR AP 1 VIEW STAT 03/01/2020 IN DEPT. 1:09 PM CDT SARS-COV2/RT-PCR ([facility] & STAT 03/01/2020 REF LABS) 12:28 PM CDT (CELLAVISION MANUAL DIFF) STAT 03/01/2020 12:25 PM CDT CBC W/PLT COUNT & AUTO STAT 03/01/2020 DIFFERENTIAL 12:25 PM CDT LACTIC ACID, VENOUS STAT 03/01/2020 12:25 PM CDT COMPREHENSIVE METABOLIC STAT 03/01/2020 PANEL 12:25 PM CDT CBC W/PLT COUNT & AUTO STAT 03/01/2020 DIFFERENTIAL 12:25 PM CDT BLOOD CULTURE STAT 03/01/2020 12:25 PM CDT BLOOD CULTURE STAT 03/01/2020 12:25 PM CDT after 05/01/2019 Results * RHYTHM STRIP - SCAN (03/07/2020 9:10 AM CDT) Narrative Performed At This result has an attachment that is n ot available. * Manual Differential (03/04/2020 4:54 AM CDT) Only the most recent of 4 results within the time period is included. % Neutros 93 % [facility] % Lymphs 2 % [facility] % Monos 3 % [facility] % Metamyelo 1 (H) 0 - 0 % [facility] % Bands 1 0 - 10 % [facility] # Neutros 18.32 (H) 1.56 - 6.13 K/ul [facility] # Lymphs 0.39 (L) 1.18 - 3.74 K/ul [facility] # Monos 0.59 (H) 0.24 - 0.36 K/uL [facility] # Metamyelo 0.20 (H) 0.00 - 0.00 K/uL [facility] # Bands 0.20 0.00 - 0.80 K/uL [facility] Total Counted 100 [facility] WBC Morphology Normal [facility] Giant Platelet Present [facility] Large Platelet Present [facility] Polychromasia 1+ few [facility] Hypochromia 1+ few [facility] Anisocytosis 1+ few [facility] Microcytes 1+ few [facility] Poikilocytes 1+ few [facility] Elliptocytes 1+ few [facility] Ovalocytes 1+ few [facility] Tear Drop Cells 1+ few [facility] Angelo Cells 1+ few [facility] Artifact Present [facility] Platelet Conc Adequate [facility] Specimen Blood Narrative Performed At Coal Trimmer YAA Chang User comments: [facility] Slide comments: WBC: SEGMENTED WITH TOXIC GRANUALTIONS PRESENT Performing Organization Address City/State/Zipcode Ph one Number [address], [place] [address] [facility] * CBC with platelet count + automated diff (03/04/2020 4:54 AM CDT) Only the most recent of 4 results within the time period is included. WBC 19.7 (H) 3.5 - 10.5 K/L [facility] RBC 3.14 (L) 3.93 - 5.22 M/L [facility] Hemoglobin 10.4 (L) 11.2 - 15.7 GM/DL [facility] Hematocrit 32.3 (L) 34.1 - 44.9 % [facility] MCV 102.9 (H) 79.4 - 94.8 fL [facility] MCH 33.1 (H) 25.6 - 32.2 pg [facility] MCHC 32.2 32.2 - 35.5 GM/DL [facility] RDW 14.3 11.7 - 14.4 % [facility] Platelets 156 150 - 450 K/CU MM [facility] MPV 10.9 9.4 - 12.3 fL [facility] nRBC 0 0 - 0 /100 WBC [facility] Specimen Blood Performing Organization Address [facility] Ph one Number [address] [facility] * Prothrombin time/INR (03/04/2020 4:54 AM CDT) Only the most recent of 4 results within the time period is included. Protime 19.2 (H) 11.9 - 14.2 seconds [facility] INR 1.7 <=5.9 [facility] Specimen Blood Narrative Performed At Effective 02/17/2019: PT Reference Range Change [facility] New: 11.9-14.2Previous: 11.7-14.7 [facility] MEDICAL CE NTER RECOMMENDED COUMADIN/WARFARIN INR THERA PY RANGES STANDARD DOSE: 2.0-3.0Includes: PRO PHYLAXIS for venous thrombosis, systemic embolization; TREATMENT for venous thro mbosis and/or pulmonary embolus. HIGH RISK: Target INR is 2.5-3.5 for pa tients wiht mechanical heart valves. Performing Organization Address [facility] Ph one Number [address] [facility] * Phosphorus (03/04/2020 4:54 AM CDT) Only the most recent of 3 results within the time period is included. Phosphorus 4.3Comment: Specimen slightly 2.3 - 4.7 mg/dL [facility] Specimen Blood Narrative Performed At [facility] ID - [facility] Performing Organization Address [facility] Ph one Number [place] [address] [phone] * Magnesium (03/04/2020 4:54 AM CDT) Only the most recent of 3 results within the time period is included. Magnesium 1.7Comment: Specimen slightly 1.6 - 2.6 mg/dL [facility] Specimen Blood Narrative Performed At [facility] ID - [facility] Performing Organization Address [facility] one Number [place] [address] 0 [phone] [address] * Basic metabolic panel (03/04/2020 4:54 AM CDT) Only the most recent of 3 results within the time period is included. Sodium 137 136 - 145 meq/L [facility] Potassium 3.6Comment: Specimen slightly 3.5 - 5.1 meq/L [facility] Chloride 104 98 - 107 meq/L [facility] CO2 23 22 - 29 meq/L [facility] BUN 8 7 - 21 mg/dL [facility] Creatinine 0.74Comment: Specimen slightly 0.57 - 1.25 mg/ dL [facility] Glucose 77 70 - 105 mg/dL [facility] Calcium 8.0 (L) 8.4 - 10.2 mg/dL [facility] EGFR 76Comment: ESTIMATED GFR IS mL/min/1.73 sq m [facility] NOT ACCURATE CREATININE [facility] CLEARANCE IN PREDICTING GLOMERULAR FILTRATION RATE. ESTIMATED GFR IS NOT APPLICABLE FOR DIALYSIS PATIENTS. Specimen Blood Narrative Performed At Coal Trimmer ID - KEL Guevara [facility] Performing Organization Address [facility] Ph one [address] [facility] * Creatine Kinase (CK) (03/02/2020 3:28 AM CDT) Total CK 44 29 - 200 U/L [facility] Specimen Blood Narrative Performed At Coal Trimmer ID - ELLE Hannon [facility] Performing Organization Address [facility] Ph one [place] [address] [facility] * B-type Natriuretic Factor (BNP) (03/01/2020 3:58 PM CDT) BNP 233 (H) 0 - 100 pg/mL [facility] Specimen Blood Narrative Performed At Coal Trimmer ID - DB [facility] Performing Organization Address [facility] one [place] [address] [facility] * Urinalysis w/Microscopic (03/01/2020 2:02 PM CDT) Color, UA Yellow [facility] Clarity, UA Hazy [facility] Specific [place], UA 1.011 1.001 - 1.035 [facility] pH, UA 5.5 5.0 - 8.0 [facility] Protein, UA Negative Negative [facility] Glucose, UA Negative Negative [facility] Ketones, UA Negative Negative [facility] Bilirubin, UA Negative Negative [facility] Blood, UA Moderate (A) Negative [facility] Nitrite, UA Negative Negative [facility] Leukocytes, UA Moderate (A) Negative [facility] Urobilinogen, UA 0.2 0.2 - 1.0 mg/dL [facility] RBC, UA 13 /HPF [facility] WBC, UA 9 /HPF [facility] Bacteria, UA Occasional [facility] Squam Epithel, UA 2 /HPF [facility] Hyaline Casts, UA 16 /LPF [facility] Yeast Occasional [facility] Specimen Source Urine, Voided [facility] Specimen Urine Narrative Performed At Coal Trimmer ID - [auto] [facility] Coal Trimmer ID - tech [facility] Performing Organization Address City/State/Zipcode Ph one Number [place] [address] [facility] * XR chest PA or AP 1 view in dept (03/01/2020 1:09 PM CDT) Specimen Narrative Performed At FINAL REPORT [facility] CLINICAL HISTORY: FEVER TECHNIQUE: 1 view of the chest. COMPARISON: 08/05/2018 IMPRESSION: There are no focal infiltrates. There i s blunting of the left costophrenic angle. The cardiomediastin al silhouette is magnified by technique with a pacemaker. There is a left chest wall port near the cavoatrial junction. Tubing again proje cts over the left hemithorax. Signed: Jana Nguyen MD Report Verified Date/Time: 0 13:48:00 Reading Location: [facility] Reading Room Procedure Note Interface, External Ris In - 03/01/2020 1:50 PM CDT FINAL REPORT CLINICAL HISTORY: FEVER TECHNIQUE: 1 view of the chest. COMPARISON: 08/05/2018 IMPRESSION: There are no focal infiltrates. There is blunting of the left costophrenic angle. The cardiomediastinal silhouette is magnified by technique with a pacemaker. There is a left chest wall port near the cavoatrial junction. Tubing again projects over the left hemithorax. Signed: Jana Nguyen MD Report Verified Date/Time: 03/01/2020 13:48:00 [facility] Reading Room Performing Organization Address City/State/Zipcode Ph one Number GE R[facility] * SARS-CoV2/RT-PCR (Symptomatic ONLY) (03/01/2020 12:28 PM CDT) SARS-COV2/RT-PCR Not Detected Not Detected, Negative [facility] SARS-COV-2 PERFORMING LAB [facility] Specimen Other Narrative Performed At Negative results do not preclude SARS-C oV-2 infection and should not be used as [facility] the sole basis for patient management decisions. Nega tive results must be [facility] combined with clinical observations, pa tient history, and epidemiological information. A false negative result ma y occur if a specimen is improperly collected, transported or handled. The limit of detection for this assay i s 250 copies/mL. This SARS CoV-2 test is a rapid, real-t grant RT-PCR test intended for the qualitative detection of nucleic acid f rom SARS-CoV-2 in a nasopharyngeal swab specimen collected from individuals clement pected of COVID-19 by their healthcare provider. This test has not been Food and Drug Ad ministration (FDA) cleared or approved and has been authorized by FDA under an Emergency Use Authorization (EUA). This EUA will be effective until the declara tion that circumstances exist justifying the authorization of the emergency use of in vitro diagnostic tests for detection and/or diagnosis of COVID-19 is terminated under Section 564(b)(2) of the Act or the EUA is revoked under Sec tion 564(g) of the Act. Fact Sheet for Healthcare Providers: https://www.[employer]/Documents/Xpert%20Xpress%20SARS%20CoV-2/Fact%20Sheets/30 2-3802%34YFQL-FNL-3%20HEALTHCARE%20PROV IDERS%20FACT%20SHEET.pdf Fact Sheet for Healthcare Patients: https://www.[employer]/Documents/Xpert%20Xpress%20SARS%20CoV-2/Fact%20Sheets/30 2-3801%19WDLY-JCL-7%20PATIENT%20FACT%20 SHEET.pdf Performing Laboratory: [address] [address] Performing Organization Address [facility] one [place] [address] [address] [phone] [place] [address] * Lactic acid, venous (03/01/2020 12:25 PM CDT) Lactate, Venous 0.91 0.50 - 2.20 mmol/L [facility] Specimen Blood Narrative Performed At Coal Trimmer ID - AAHAMID [facility] Performing Organization Address [facility] one [place] [address] 0 [phone] [place] [address] * Blood Culture - Routine (Left Venipuncture) (03/01/2020 12:25 PM CDT) Only the most recent of 2 results within the time period is included. Result No growth in 5 days [facility] Specimen Blood Performing Organization Address [facility] Ph one [place] [address] 0 [phone] [place] [address] * Comprehensive metabolic panel (03/01/2020 12:25 PM CDT) Protein, Total 6.1 6.0 - 8.3 gm/dL [facility] Albumin 3.8 3.5 - 5.0 g/dL [facility] Alkaline Phosphatase 101 40 - 150 U/L [facility] Total Bilirubin 0.4 0.2 - 1.2 mg/dL [facility] Sodium 132 (L) 136 - 145 meq/L [facility] Potassium 4.0 3.5 - 5.1 meq/L [facility] Chloride 99 98 - 107 meq/L [facility] CO2 25 22 - 29 meq/L [facility] BUN 17 7 - 21 mg/dL [facility] Creatinine 1.01 0.57 - 1.25 mg/dL [facility] Glucose 98 70 - 105 mg/dL [facility] Calcium 8.8 8.4 - 10.2 mg/dL [facility] AST 19 5 - 34 U/L [facility] ALT 18 6 - 55 U/L [facility] EGFR 53Comment: ESTIMATED GFR IS mL/min/1.73 sq m [facility] NOT ACCURATE CREATININE [facility] CLEARANCE IN PREDICTING GLOMERULAR FILTRATION RATE. ESTIMATED GFR IS NOT APPLICABLE FOR DIALYSIS PATIENTS. Specimen Blood Narrative Performed At Coal Trimmer ID - NTP [facility] Performing Organization Address City/State/Zipcode Ph one Number [facility] [address] [place] [address] [facility] after 05/01/2019 Insurance Payer Benefit Subscriber ID Type Phone Address Plan / Group MEDICARE MEDICARE A xxxxxxxxxxx Medicare B MCR SUPPLEMENT/INDIVIDUAL AARP/UNITE xxxxxxxxxxx Medi gap D HEALTHCARE CDC REVIEW CDC REVIEW [id number] [address] [place] [place] [phone] Advance Directives For more information, please contact: [place] [address] [place] [address] Date Inactivated Comments Code Status Date Activated 03/04/2020 2:53 PM Full Code 03/01/2020 3:24 PM This code status was determined by: Patient 08/25/2018 3:57 PM Full Code 08/25/2018 2:55 PM This code status was determined by: Patient 10/20/2017 10:13 AM Full Code 10/20/2017 5:56 AM This code status was determined by: Patient 04/24/2013 7:59 PM All possible means of suppor t, including: cardiac massage, mechanical ventilation, and defibrillation will be used to support life. Code ONE 04/20/2013 3:43 AM 03/05/2013 5:57 PM All possible means of suppor t, including: cardiac massage, mechanical ventilation, and defibrillation will be used to support life. Code ONE 02/28/2013 11:21 PM
--- OUTSIDE RECORDS SUMMARY | 2020-05-01 23:18 | XMS REPORT | Summary of Care ---
Author Author SAM MASCORRO M.D. Organization Unknown Address [facility] Phone Unavailable Care Team Providers Care Picker Machine Operator Name Role Phone ANGELA MASCORRO M.D. Unavailable Unavailable SUBHA HERNANDEZ MD [place], ANGELA RUDD Unavailable Unavail josselin VELA MD, MERCEDES WHITE Unavailable Unavailable Unavailable Unavailable Functional [...] Status : Active Procedures Procedure Dates Details Procedures not documented Immunization Name Dates Details Immunizations not documented Social History Name Dates Details Tobacco smoking consumption unknown (finding) Vital Signs Date Test Result Details No Known Vitals to report Results Date Description Value Details Results not documented Plan of Care Name Dates Details Planned Observations XRAY Hip bilateral w pelvis and both lat hips [id number] On : 05-Oct-2019 Intent Planned Goals not documented Interventions Provided Labs/Procedures/Imaging* [U] XR KNEE 3 VWS BILATERAL; Done: 17 Apr 2018 Plan* Patient Education/Instructions: * Reassurance * Counseling Provided. * Orders: * Pt wanted [place] cortisone injections today for whatever temporary relief she could get. I will order bilateral Euflexxa. The office will call pt for an appt once medication is approved. Instructions Name Dates Details Instructions not documented Encounters Appointment; ANGELA MASCORRO M.D. Encounter Diagnosis: Problem not documented On: 17-Apr-2018 11:00
== END 2020-05-02 00:28 | disposition other institution (70) ==
LOC: ER 21:06
DX: A41.9 Sepsis, unspecified organism (principal); D70.9 Neutropenia, unspecified; R50.81 Fever presenting with conditions classified elsewhere; C50.919 Malignant neoplasm of unspecified site of unspecified female breast; Z79.899 Other long term (current) drug therapy; R53.1 Weakness; I48.91 Unspecified atrial fibrillation; Z85.850 Personal history of malignant neoplasm of thyroid
CPT/HCPCS: 36415; 70450; 71045; 80053; 81001; 82550; 82553; 83605; 84484; 85025; 87040; 93005; 99284; J0456; J0692

== ENCOUNTER → 2020-05-30 | Outpatient (CLI) | payer MEDICARE, OTHER | LOC: MAMMO 12:57 | PROVIDERS: ATTEND Internal Medicine Medical Oncology | DX: N63.32 Unspecified lump in axillary tail of the left breast (principal); R59.0 Localized enlarged lymph nodes | CPT/HCPCS: 77066 ==